=== PATIENT | female | born 1975 | race African-American/Black ===

== ENCOUNTER 2017-05-13 00:03 | Emergency (ER) | payer OTHER ==
[2017-05-13 00:21] VITALS: BP 144/84; PULSE 74; RESP 18; TEMP 98.4
[2017-05-13] MEDS ORDERED: PROPARACAINE 0.5% OPHTH DROPS 15 ML BTL LEFT EYE STA (00:46)
[2017-05-13] MEDS ORDERED: TOBRAMYCIN 0.3% OPHTH DROPS 5 ML BTL LEFT EYE STA (00:53)
--- NOTE | 2017-05-13 00:57 | ED ---
General Adult HPI - General Chief complaint: ENT Stated complaint: poss pink eye Time Seen by Provider: 05/13/17 00:44 Source: patient, RN notes reviewed Mode of arrival: ambulatory Limitations: no limitations - History of Present Illness Initial comments: 41-year-old female presents emergency Department chief complaint of left eye irritation. Patient states her slight tearing and redness noted. Patient states this started after she rubbed her eye earlier this evening. Patient's states that there is no blurred vision. Patient states that it just feels like there is something in her eye or she may have a piece of sand. Patient states she does not wear any contacts. - Related Data Home Medications Medication Instructions Recorded Confirmed Zolpidem [Ambien] 10 mg PO HS 04/07/14 05/13/17 Losartan [Cozaar] 50 mg PO DAILY 02/04/16 05/13/17 Phentermine HCl [Adipex-P] 37.5 mg PO QAM 09/30/16 05/13/17 Sertraline [Zoloft] 25 mg PO DAILY 09/30/16 05/13/17 Allergies Allergy/AdvReac Type Severity Reaction Status Date / Time No Known Allergies Allergy Verified 05/13/17 00:18 Review of Systems ROS Statement: Those systems with pertinent positive or pertinent negative responses have been documented in the HPI. ROS Other: All systems not noted in ROS Statement are negative. Past Medical History Past Medical History: Diabetes Mellitus, Hypertension History of Any Multi-Drug Resistant Organisms: None Reported Past Surgical History: Adenoidectomy, Tonsillectomy Additional Past Surgical History / Comment(s): surgical removal of uterine tumors - March 2017 D&C Past Psychological History: No Psychological Hx Reported Smoking Status: Never smoker Past Alcohol Use History: Occasional Past Drug Use History: None Reported General Exam Limitations: no limitations General appearance: alert, in no apparent distress Eye exam: Present: PERRL, EOMI, conjunctival injection (Left), other (Patient had relief of her symptoms with 2 drops of proparacaine. Patient eye was evaluated with flourescein and Wood's lamp which reveals a small abrasion in the 6 o'clock position). Absent: normal appearance, scleral icterus, periorbital swelling Respiratory exam: Present: normal lung sounds bilaterally. Absent: respiratory distress, wheezes, rales, rhonchi, stridor Cardiovascular Exam: Present: regular rate, normal rhythm, normal heart sounds. Absent: systolic murmur, diastolic murmur, rubs, gallop, clicks Neurological exam: Present: alert, oriented X3, CN II-XII intact Skin exam: Present: warm, dry, intact, normal color. Absent: rash Course Vital Signs 05/13/17 00:18 Temperature 98.4 F Pulse Rate 74 Respiratory 18 Rate Blood Pressure 144/84 O2 Sat by Pulse 100 Oximetry Medical Decision Making - Medical Decision Making 41-year-old female presented emergency department for left eye irritation. Patient has a corneal patient she is up-to-date on her tetanus. Patient discharged with Tobrex eyedrops 1 drop every 4 hours for 5 days patient follow- up with ophthalmology if no improvement return parameters were discussed. Disposition Clinical Impression: Corneal abrasion Disposition: HOME SELF-CARE Condition: Stable Instructions: Corneal Abrasion (ED) Additional Instructions: Please return to the Emergency Department if symptoms worsen or any other concerns. Referrals: Ashish Smith MD [Primary Care Provider] - 1-2 days Time of Disposition: 00:57
== END 2017-05-13 01:30 | disposition home or self-care (01) ==
LOC: EC 00:03
DX: S05.02XA Injury of conjunctiva and corneal abrasion without foreign body, left eye, initial encounter (principal); I10 Essential (primary) hypertension; Z90.89 Acquired absence of other organs; Z79.899 Other long term (current) drug therapy; X58.XXXA Exposure to other specified factors, initial encounter
CPT/HCPCS: 99283

== ENCOUNTER 2019-06-16 08:50 | Emergency (ER) | payer OTHER ==
[2019-06-16 08:56] VITALS: BP 139/72; PULSE 91; RESP 16; TEMP 97.8
[2019-06-16 09:30] LABS: Appearance,Urine Cloudy (Clear); Bacteria,Urine Rare /hpf; Bilirubin,Urine Negative (Negative); Blood,Urine Large (Negative); Color,Urine Yellow; Glucose,Urine (UA) 4+ (Negative); Ketones,Urine Negative (Negative); Leukocyte Esterase,Urine Small (Negative); Mucus,Urine Rare /hpf; Nitrite,Urine Negative (Negative); PH, Urine 5.5 (5.0-8.0); Protein,Urine 1+ (Negative); RBC,Urine 8 /hpf (0-5); Specific Gravity,Urine 1.032 (1.001-1.035); Squamous Epithelial Cell,Urine 8 /hpf (0-4); Urobilinogen,Urine <2.0 mg/dL (<2.0); WBC,Urine 9 /hpf (0-5)
--- NOTE | 2019-06-16 09:37 | ED ---
Female Urogenital HPI - General Chief complaint: Urogenital Stated complaint: female gu Time Seen by Provider: 06/16/19 09:03 Source: patient, RN notes reviewed Mode of arrival: ambulatory Limitations: no limitations - History of Present Illness Initial comments: 43-year-old female presents emergency Department chief complaint of vaginal discomfort and discharge. Patient states that she was on antibiotic few weeks ago for an upper respiratory infection. Patient states causes a yeast infection she did take a Diflucan which seemed to help but states now returned and she tried another Diflucan with no relief of symptoms. She does have a history of bacterial vaginosis. Patient states that she is not concern for STD. Patient denies any sores or lesions that she did notice. She states she has some lower abdominal discomfort but she relates this to starting her menstrual cycle. - Related Data Home Medications Medication Instructions Recorded Confirmed Zolpidem [Ambien] 10 mg PO HS 04/07/14 06/16/19 Losartan [Cozaar] 50 mg PO DAILY 02/04/16 06/16/19 LORazepam [Ativan] 1 mg PO HS 12/01/17 06/16/19 sitaGLIPtin [Januvia] 100 mg PO DAILY 06/16/19 06/16/19 Previous Rx's Medication Instructions Recorded metroNIDAZOLE [Flagyl] 500 mg PO TID #30 tab 06/16/19 Allergies Allergy/AdvReac Type Severity Reaction Status Date / Time No Known Allergies Allergy Verified 06/16/19 09:14 Review of Systems ROS Statement: Those systems with pertinent positive or pertinent negative responses have been documented in the HPI. ROS Other: All systems not noted in ROS Statement are negative. Past Medical History Past Medical History: Blood Disorder, Diabetes Mellitus, Hypertension Additional Past Medical History / Comment(s): ANEMIA. History of Any Multi-Drug Resistant Organisms: None Reported Past Surgical History: Adenoidectomy, Tonsillectomy Additional Past Surgical History / Comment(s): surgical removal of uterine tumors - March 2017 D&C Past Anesthesia/Blood Transfusion Reactions: No Reported Reaction Past Psychological History: Anxiety, Depression Smoking Status: Never smoker Past Alcohol Use History: None Reported Past Drug Use History: None Reported General Exam Limitations: no limitations General appearance: alert, in no apparent distress Head exam: Present: atraumatic, normocephalic, normal inspection Respiratory exam: Present: normal lung sounds bilaterally. Absent: respiratory distress, wheezes, rales, rhonchi, stridor Cardiovascular Exam: Present: regular rate, normal rhythm, normal heart sounds. Absent: systolic murmur, diastolic murmur, rubs, gallop, clicks GI/Abdominal exam: Present: soft, normal bowel sounds. Absent: distended, tenderness, guarding, rebound, rigid External exam: Present: normal external exam, other (Exam performed with Renetta GONZALEZ) Speculum exam: Present: vaginal discharge. Absent: erythema, cervical discharge, vaginal bleeding Back exam: Absent: CVA tenderness (R), CVA tenderness (L) Course Vital Signs 06/16/19 08:53 Temperature 97.8 F Pulse Rate 91 Respiratory 16 Rate Blood Pressure 139/72 O2 Sat by Pulse 100 Oximetry Medical Decision Making - Medical Decision Making 43-year-old female presented for vaginal discharge. Patient symptoms are consistent with Bactrim vaginal cyst. Patient did have genital cultured, GC and chlamydia swabs. Patient will be treated with Flagyl at this time. Patient will follow-up with [facility] return for any worsening symptoms. - Lab Data Lab Results 06/16/19 06/16/19 Range/Units 09:13 09:13 Urine Color Yellow Urine Appearance Cloudy H (Clear) Urine pH 5.5 (5.0-8.0) Ur Specific [place] 1.032 (1.001-1.035) Urine Protein 1+ H (Negative) Urine Glucose (UA) 4+ H (Negative) Urine Ketones Negative (Negative) Urine Blood Large H (Negative) Urine Nitrite Negative (Negative) Urine Bilirubin Negative (Negative) Urine Urobilinogen <2.0 (<2.0) mg/dL Ur Leukocyte Esterase Small H (Negative) Urine RBC 8 H (0-5) /hpf Urine WBC 9 H (0-5) /hpf Ur Squamous Epith Cells 8 H (0-4) /hpf Urine Bacteria Rare H (None) /hpf Urine Mucus Rare H (None) /hpf Urine HCG, Qual Not Detected (Not Detectd) Disposition Clinical Impression: Bacterial vaginosis Disposition: HOME SELF-CARE Condition: Stable Instructions (If sedation given, give patient instructions): Bacterial Vaginosis (ED) Additional Instructions: Please return to the Emergency Department if symptoms worsen or any other concerns. Prescriptions: metroNIDAZOLE [Flagyl] 500 mg PO TID #30 tab Is patient prescribed a controlled substance at d/c from ED?: No Referrals: Ashish Smith MD [Primary Care Provider] - 1-2 days Time of Disposition: 09:36
[2019-06-17 13:54] LABS: C. trachomatis,PCR Negative (Neg,Equiv); Chlamydia trachomatis Source Vagina
[2019-06-17 14:22] LABS: N. gonorrhoeae,PCR Negative (Neg,Equiv); Neisseria Source Vagina
== END 2019-06-16 09:46 | disposition home or self-care (01) ==
LOC: EC 08:50
DX: N76.0 Acute vaginitis (principal); B96.89 Other specified bacterial agents as the cause of diseases classified elsewhere; E11.9 Type 2 diabetes mellitus without complications; I10 Essential (primary) hypertension; F41.9 Anxiety disorder, unspecified; Z79.84 Long term (current) use of oral hypoglycemic drugs; Z79.899 Other long term (current) drug therapy; Z98.890 Other specified postprocedural states
CPT/HCPCS: 81001; 81025; 87070; 87205; 87491; 87591; 87808; 99283

== ENCOUNTER 2019-07-29 08:28 | Emergency (ER) | payer OTHER ==
[2019-07-29 08:32] VITALS: BP 147/97; PULSE 81; RESP 20; TEMP 97.9
--- NOTE | 2019-07-29 09:13 | ED ---
Female Urogenital HPI - General Chief complaint: Urogenital Stated complaint: Urogenital Time Seen by Provider: 07/29/19 08:32 Source: patient Mode of arrival: ambulatory Limitations: no limitations - History of Present Illness Initial comments: 43-year-old female presents today for chief complaint of vaginal discharge 1 week. Patient states that she finished menstruation on 07/19/2019 7 she has had some clearish yellow discharge without odor she states she has some vaginal irritation. She states doesn't seem like yeast and does not smoke rash. P atient states she has not been sexually active since January and states that she has had subsequent appointments with her EMS INSTRUCTOR for STI testing. Patient denies any pelvic or back pain denies dysuria or urgency frequency hematuria. Patient denies a fever fluid symptoms. Patient denies a vaginal ulcers or sores. Remaining review of system negative. Upon arrival patient appears well signs acute distress. Last Menstrual Period: 07/19/19 - Related Data Home Medications Medication Instructions Recorded Confirmed Zolpidem [Ambien] 10 mg PO HS 04/07/14 07/20/19 Losartan [Cozaar] 50 mg PO DAILY 02/04/16 07/20/19 LORazepam [Ativan] 1 mg PO HS 12/01/17 07/20/19 sitaGLIPtin [Januvia] 100 mg PO DAILY 06/16/19 07/20/19 Previous Rx's Medication Instructions Recorded Fluconazole [Diflucan] 150 mg PO ONCE 2 Days #2 tab 07/29/19 metroNIDAZOLE 0.75% VAGINAL 1 applic VAGINAL HS 5 Days #5 tube 07/29/19 [Metrogel Vaginal] Allergies Allergy/AdvReac Type Severity Reaction Status Date / Time No Known Allergies Allergy Verified 07/29/19 08:31 Review of Systems ROS Statement: Those systems with pertinent positive or pertinent negative responses have been documented in the HPI. ROS Other: All systems not noted in ROS Statement are negative. Past Medical History Past Medical History: Blood Disorder, Diabetes Mellitus, Hypertension Additional Past Medical History / Comment(s): ANEMIA. History of Any Multi-Drug Resistant Organisms: None Reported Past Surgical History: Adenoidectomy, Tonsillectomy Additional Past Surgical History / Comment(s): surgical removal of uterine tumors - March 2017 D&C Past Anesthesia/Blood Transfusion Reactions: No Reported Reaction Past Psychological History: Anxiety, Depression Smoking Status: Never smoker Past Alcohol Use History: Occasional Past Drug Use History: None Reported General Exam - General Exam Comments Initial Comments: General: The patient is awake and alert, in no distress, and does not appear acutely ill. Eye: Pupils are equal, round and reactive to light, extra-ocular movements are intact. No nystagmus. There is normal conjunctiva bilaterally. No signs of icterus. Cardiovascular: There is a regular rate and rhythm. No murmur, rub or gallop is appreciated. Respiratory: Lungs are clear to auscultation, respirations are non-labored, breath sounds are equal. No wheezes, stridor, rales, or rhonchi. Gastrointestinal: Soft, non-distended, non-tender abdomen without masses or organomegaly noted. There is no rebound or guarding present. Pelvic exam revealed closed cervical os. Scant amount vaginal discharge in vault, mostly clear somewhat yellow tinge no odor. Patient is no cervical motion or adnexal tenderness. Musculoskeletal: Normal ROM, no tenderness. Strength 5/5. Sensation intact. Pulses equal bilaterally 2+. Neurological: A&O x 3. CN II-XII intact, There are no obvious motor or sensory deficits. Coordination appears grossly intact. Speech is normal. Skin: Skin is warm and dry and no rashes or lesions are noted. Psychiatric: Cooperative, appropriate mood & affect, normal judgment. Limitations: no limitations Course Vital Signs 07/29/19 08:29 Temperature 97.9 F Pulse Rate 81 Respiratory 20 Rate Blood Pressure 147/97 O2 Sat by Pulse 100 Oximetry Medical Decision Making - Medical Decision Making 43-year-old female presented today for chief complaint of vaginal discharge. No odor and exam. No cervical motion or adnexal tenderness. No abdominal pain. Patient states she has not been sexually active. Cultures were obtained including gonorrhea chlamydia Trichomonas testing. Patient does not appears to have yeast but complains of vaginal irritation. Ddx includes physiologic discharge. Patient treated with fluconazole and intravaginal metronidazole. At this time do feel patient is stable for discharge with outpatient primary care follow-up as well as EMS INSTRUCTOR follow-up. - Lab Data Lab Results 07/29/19 07/29/19 07/29/19 Range/Units 08:36 08:36 09:05 Urine Color Yellow Urine Appearance Clear (Clear) Urine pH 5.5 (5.0-8.0) Ur Specific [place] 1.041 H (1.001-1.035) Urine Protein Trace H (Negative) Urine Glucose (UA) 4+ H (Negative) Urine Ketones Trace H (Negative) Urine Blood Small H (Negative) Urine Nitrite Negative (Negative) Urine Bilirubin Negative (Negative) Urine Urobilinogen <2.0 (<2.0) mg/dL Ur Leukocyte Esterase Negative (Negative) Urine RBC 6 H (0-5) /hpf Urine WBC 8 H (0-5) /hpf Ur Squamous Epith Cells 5 H (0-4) /hpf Urine Bacteria Occasional H (None) /hpf Urine HCG, Qual Not Detected (Not Detectd) Trichomonas Ag (Rapid) Negative (Negative) Disposition Clinical Impression: Vaginal discharge, Vaginal irritation Disposition: HOME SELF-CARE Condition: Good Instructions (If sedation given, give patient instructions): Vaginal Discharge (ED) Additional Instructions: Please use medication as discussed. Please follow-up with family doctor in the next 2 days and OBGYN in next week. Please return to emergency room if the symptoms increase or worsen or for any other concerns. Prescriptions: Fluconazole [Diflucan] 150 mg PO ONCE 2 Days #2 tab metroNIDAZOLE 0.75% VAGINAL [Metrogel Vaginal] 1 applic VAGINAL HS 5 Days #5 tube Is patient prescribed a controlled substance at d/c from ED?: No Referrals: Ashish Smith MD [Primary Care Provider] - 1-2 days Time of Disposition: 09:13
[2019-07-29 09:57] LABS: Appearance,Urine Clear (Clear); Bacteria,Urine Occasional /hpf; Bilirubin,Urine Negative (Negative); Blood,Urine Small (Negative); Color,Urine Yellow; Glucose,Urine (UA) 4+ (Negative); Ketones,Urine Trace (Negative); Leukocyte Esterase,Urine Negative (Negative); Nitrite,Urine Negative (Negative); PH, Urine 5.5 (5.0-8.0); Protein,Urine Trace (Negative); RBC,Urine 6 /hpf (0-5); Specific Gravity,Urine 1.041 (1.001-1.035); Squamous Epithelial Cell,Urine 5 /hpf (0-4); Urobilinogen,Urine <2.0 mg/dL (<2.0); WBC,Urine 8 /hpf (0-5)
[2019-07-30 13:43] LABS: C. trachomatis,PCR Negative (Neg,Equiv); Chlamydia trachomatis Source Vagina
[2019-07-30 13:46] LABS: N. gonorrhoeae,PCR Negative (Neg,Equiv); Neisseria Source Vagina
== END 2019-07-29 10:04 | disposition home or self-care (01) ==
LOC: EC 08:28
DX: N89.8 Other specified noninflammatory disorders of vagina (principal); I10 Essential (primary) hypertension; E11.9 Type 2 diabetes mellitus without complications; F41.9 Anxiety disorder, unspecified; F32.9 Major depressive disorder, single episode, unspecified; Z79.84 Long term (current) use of oral hypoglycemic drugs; Z79.899 Other long term (current) drug therapy; Z98.890 Other specified postprocedural states
CPT/HCPCS: 81001; 81025; 87070; 87491; 87591; 87808; 99283

== ENCOUNTER 2020-12-12 16:55 | Emergency (ER) | payer OTHER ==
[2020-12-12 16:58] VITALS: RESP 18; TEMP 98.9
--- NOTE | 2020-12-12 17:59 | XR ---
EXAMINATION TYPE: XR humerus RT DATE OF EXAM: 12/12/2020 COMPARISON: NONE HISTORY: Fall. Pain. TECHNIQUE: 2 views FINDINGS: Elbow joint and shoulder joint appear intact. I see no fracture nor dislocation. IMPRESSION: Negative right humerus exam.
--- NOTE | 2020-12-12 17:59 | XR ---
EXAMINATION TYPE: XR shoulder complete RT DATE OF EXAM: 12/12/2020 COMPARISON: NONE HISTORY: Fall on the right shoulder. Pain. TECHNIQUE: 3 views FINDINGS: I see no fracture nor dislocation. Joint spaces appear normal. There are no pathologic calc ifications. IMPRESSION: Negative right shoulder exam.
--- NOTE | 2020-12-12 18:22 | ED ---
Upper Extremity HPI - General Chief Complaint: Extremity Injury, Upper Stated Complaint: Fall, R Arm Injury Time Seen by Provider: 12/12/20 17:00 Source: patient Mode of arrival: ambulatory Limitations: no limitations - History of Present Illness Initial Comments: Patient is a 45-year-old female presenting to the emergency Department with complaints of pain in her right upper arm. Patient states that for the last 2 weeks she has been having some intermittent discomfort of her right upper arm. She denies any falls or trauma to cause this pain and she cannot think of anything that would've aggravated it. Patient states then today she slipped on some ice and fell onto her right arm. She states the pain increased so she came into the ER for evaluation. She denies any previous surgeries or injuries to her right shoulder, right upper arm or right elbow. She denies any other injuries from the fall today. She denies any recent fever or chills. She has no further complaints at this time. - Related Data Home Medications Medication Instructions Recorded Confirmed Zolpidem [Ambien] 10 mg PO HS 04/07/14 07/20/19 Losartan [Cozaar] 50 mg PO DAILY 02/04/16 07/20/19 LORazepam [Ativan] 1 mg PO HS 12/01/17 07/20/19 sitaGLIPtin [Januvia] 100 mg PO DAILY 06/16/19 07/20/19 Previous Rx's Medication Instructions Recorded Fluconazole [Diflucan] 150 mg PO ONCE 2 Days #2 tab 07/29/19 metroNIDAZOLE 0.75% VAGINAL 1 applic VAGINAL HS 5 Days #5 tube 07/29/19 [Metrogel Vaginal] Naproxen Sodium [Aleve] 220 mg PO BID PRN #30 tablet 12/12/20 Allergies Allergy/AdvReac Type Severity Reaction Status Date / Time No Known Allergies Allergy Verified 12/12/20 16:58 Review of Systems ROS Statement: Those systems with pertinent positive or pertinent negative responses have been documented in the HPI. ROS Other: All systems not noted in ROS Statement are negative. Past Medical History Past Medical History: Blood Disorder, Diabetes Mellitus, Hypertension Additional Past Medical History / Comment(s): ANEMIA. History of Any Multi-Drug Resistant Organisms: None Reported Past Surgical History: Adenoidectomy, Hysterectomy, Tonsillectomy Additional Past Surgical History / Comment(s): surgical removal of uterine tumors - March 2017 D&C Past Anesthesia/Blood Transfusion Reactions: No Reported Reaction Past Psychological History: Anxiety, Depression Smoking Status: Never smoker Past Alcohol Use History: Occasional Past Drug Use History: None Reported General Exam - General Exam Comments Initial Comments: GENERAL: Patient is well-developed and well-nourished. Patient is nontoxic and in no acute distress. HEAD: Atraumatic, normocephalic. EYES: Pupils equal round and reactive to light, extraocular movements intact, sclera anicteric, conjunctiva are normal. Eyelids were unremarkable. ENT: TMs normal, nares patent, oropharynx clear without exudates. Moist mucous membranes. NECK: Normal range of motion, supple without lymphadenopathy or JVD. LUNGS: Unlabored respirations. Breath sounds clear to auscultation bilaterally and equal. No wheezes rales or rhonchi. HEART: Regular rate and rhythm without murmurs, rubs or gallops. ABDOMEN: Soft, nontender, normoactive bowel sounds. No guarding, no rebound. No masses appreciated. : Deferred MUSCULOSKELETAL: Patient has pain with palpation of the right upper arm, right anterior shoulder. She has pain with active shoulder flexion and internal and external rotation. She has pain with resisted range of motion. No pain of the right elbow or right lower arm. She is neurovascular intact. There is no swelling, no signs of deformity. No clubbing or cyanosis. NEUROLOGICAL: Patient is alert and oriented x 3. Normal speech, normal gait. PSYCH: Normal mood, normal affect. SKIN: Warm, Dry, normal turgor, no rashes or lesions noted. Limitations: no limitations Course Vital Signs 12/12/20 16:56 Temperature 98.9 F Pulse Rate 100 Respiratory 18 Rate Blood Pressure 161/87 O2 Sat by Pulse 98 Oximetry Medical Decision Making - Medical Decision Making Patient 45-year-old female here for right upper arm pain for the last 2 weeks but then increased today when she slipped on ice and fell onto her right arm. No other injuries from this fall. X-rays of the right shoulder and right humerus revealed no acute fractures dislocations. Her exam is consistent with right shoulder tendinitis. We discussed using ice, heat to the area as well as ibuprofen or Aleve for any discomfort. She is asking for a work note for tonight. I will give her orthopedic follow-up. She is stable for discharge and she is in agreement with this plan of care. Disposition Clinical Impression: Right shoulder tendinitis, Right arm pain Disposition: HOME SELF-CARE Condition: Stable Instructions (If sedation given, give patient instructions): Rotator Cuff Tendinitis (ED) Additional Instructions: Please return to the Emergency Department if symptoms worsen or any other concerns. Recommended an Aleve or Motrin for discomfort. May try ice or heat to the shoulder, gentle stretching. If symptoms persist, please follow up with orthopedic doctor as discussed. Prescriptions: Naproxen Sodium [Aleve] 220 mg PO BID PRN #30 tablet PRN Reason: Pain Is patient prescribed a controlled substance at d/c from ED?: No Referrals: Ashish Smith MD [Primary Care Provider] - 1-2 days Eamon Patel MD [STAFF PHYSICIAN] - 1-2 days
[2020-12-12 18:36] VITALS: BP 143/92; PULSE 73
== END 2020-12-12 18:37 | disposition home or self-care (01) ==
LOC: EC 16:55
DX: M79.621 Pain in right upper arm (principal); M77.8 Other enthesopathies, not elsewhere classified; E11.9 Type 2 diabetes mellitus without complications; I10 Essential (primary) hypertension; Z79.84 Long term (current) use of oral hypoglycemic drugs; Z79.899 Other long term (current) drug therapy
CPT/HCPCS: 99283

== ENCOUNTER 2021-05-10 21:13 | Observation (INO) | payer OTHER ==
[2021-05-10] MEDS ORDERED: KETOROLAC 15 MG/ML 1 ML VIAL IVP STA (21:50)
[2021-05-10] MEDS ORDERED: SODIUM CHLORIDE 0.9% 1,000 ML IV STA ×2 (21:50)
[2021-05-10] MEDS ORDERED: MORPHINE SULFATE 4 MG/ML SYRINGE IV STA (21:50)
[2021-05-10] MEDS ORDERED: SODIUM CHLORIDE 0.9% 500 ML 500 ML IV STA (21:50)
--- NOTE | 2021-05-10 21:50 | ED ---
Abdominal Pain HPI - General Chief Complaint: Nausea/Vomiting/Diarrhea Stated Complaint: left side pain, nausea & vomiting Time Seen by Provider: 05/10/21 21:41 Source: patient, RN notes reviewed, old records reviewed Mode of arrival: ambulatory Limitations: no limitations - History of Present Illness Initial Comments: This is a 45-year-old female DF for evaluation patient Dese for evaluation of severe pain left-sided flank pain. Patient has no tenderness noted on exam. No fevers. Decreased urination noted. Patient was diagnosed as having a urinary tract infection unsure of those urine results. Patient has persistent pain here in the ER, denying history of kidney stones Complaint: abdominal pain, flank pain (left sided) -: days(s) Location: LLQ, L flank Radiation: L flank Migration to: no migration Severity: severe Severity scale (1-10): 8 Quality: stabbing Consistency: constant Improves With: nothing Worsens With: nothing Context: recent antibiotic use Associated Symptoms: nausea, vomiting Treatments Prior to Arrival: other (none) - Related Data Home Medications Medication Instructions Recorded Confirmed Zolpidem [Ambien] 10 mg PO HS 04/07/14 05/10/21 Losartan [Cozaar] 50 mg PO DAILY 02/04/16 05/10/21 LORazepam [Ativan] 1 mg PO HS PRN 12/01/17 05/10/21 Ibuprofen [Motrin] 800 mg PO Q8H PRN 05/10/21 05/10/21 Nitrofurantoin Monohyd/M-Cryst 100 mg PO Q12HR 05/10/21 05/10/21 [Macrobid] metFORMIN HCL 500 mg PO BID 05/10/21 05/10/21 Previous Rx's Medication Instructions Recorded HYDROcodone/APAP 5-325MG [[place] 1 tab PO Q4HR PRN #14 tab 05/12/21 5-325] Tamsulosin [Flomax] 0.4 mg PO PC-SUPPER #30 cap.er.24h 05/12/21 Allergies Allergy/AdvReac Type Severity Reaction Status Date / Time No Known Allergies Allergy Verified 05/10/21 23:28 Review of Systems ROS Statement: Those systems with pertinent positive or pertinent negative responses have been documented in the HPI. ROS Other: All systems not noted in ROS Statement are negative. Past Medical History Past Medical History: Blood Disorder, Diabetes Mellitus, Hypertension Additional Past Medical History / Comment(s): ANEMIA. History of Any Multi-Drug Resistant Organisms: None Reported Past Surgical History: Adenoidectomy, Hysterectomy, Tonsillectomy Additional Past Surgical History / Comment(s): surgical removal of uterine tumors - March 2017 D&C Past Anesthesia/Blood Transfusion Reactions: No Reported Reaction Past Psychological History: Anxiety, Depression Smoking Status: Never smoker Past Alcohol Use History: Occasional Past Drug Use History: None Reported General Exam Limitations: no limitations General appearance: alert, in no apparent distress Head exam: Present: atraumatic, normocephalic, normal inspection Eye exam: Present: normal appearance, PERRL, EOMI. Absent: scleral icterus, conjunctival injection, periorbital swelling ENT exam: Present: normal exam, mucous membranes moist Neck exam: Present: normal inspection. Absent: tenderness, meningismus, lymphadenopathy Respiratory exam: Present: normal lung sounds bilaterally. Absent: respiratory distress, wheezes, rales, rhonchi, stridor Cardiovascular Exam: Present: regular rate, normal rhythm, normal heart sounds. Absent: systolic murmur, diastolic murmur, rubs, gallop, clicks GI/Abdominal exam: Present: soft, normal bowel sounds. Absent: distended, tenderness, guarding, rebound, rigid Extremities exam: Present: normal inspection, full ROM, normal capillary refill. Absent: tenderness, pedal edema, joint swelling, calf tenderness Back exam: Present: normal inspection Neurological exam: Present: alert, oriented X3, CN II-XII intact Psychiatric exam: Present: normal affect, normal mood Skin exam: Present: warm, dry, intact, normal color. Absent: rash Course Vital Signs 05/10/21 05/10/21 05/10/21 21:35 22:50 23:58 Temperature 98.0 F Pulse Rate 91 88 92 Respiratory 20 16 16 Rate Blood Pressure 157/87 159/77 156/87 O2 Sat by Pulse 99 98 98 Oximetry - Reevaluation(s) Reevaluation #1: Medical record is reviewed Patient no significant acute distress Patient symptoms improved here in the ER Patient informed of results and questions answered Medical Decision Making - Medical Decision Making 45 female DF for evaluation of left flank pain severe left flank pain no history of kidney stones. Evidence of pyelonephritis on imaging likely kidney stone related to inflammation related does not appear to be infectious but will treat with antibiotics and symptom management - Lab Data Result diagrams: 05/10/21 22:08 05/10/21 22:08 Lab Results 05/10/21 05/10/21 05/10/21 Range/Units 22:08 22:08 22:08 WBC 10.8 H (3.8-10.6) k/uL RBC 4.80 (3.80-5.40) m/uL Hgb 13.9 (11.4-16.0) gm/dL Hct 41.5 (34.0-46.0) % MCV 86.4 (80.0-100.0) fL MCH 29.0 (25.0-35.0) pg MCHC 33.6 (31.0-37.0) g/dL RDW 12.0 (11.5-15.5) % Plt Count 282 (150-450) k/uL MPV 6.9 Neutrophils % 85 % Lymphocytes % 11 % Monocytes % 2 % Eosinophils % 2 % Basophils % 0 % Neutrophils # 9.2 H (1.3-7.7) k/uL Lymphocytes # 1.2 (1.0-4.8) k/uL Monocytes # 0.2 (0-1.0) k/uL Eosinophils # 0.2 (0-0.7) k/uL Basophils # 0.0 (0-0.2) k/uL Sodium (137-145) mmol/L Potassium (3.5-5.1) mmol/L Chloride (98-107) mmol/L Carbon Dioxide (22-30) mmol/L Anion Gap mmol/L BUN (7-17) mg/dL Creatinine (0.52-1.04) mg/dL Est GFR (CKD-EPI)AfAm (>60 ml/min/1.73 sqM) Est GFR (CKD-EPI)NonAf (>60 ml/min/1.73 sqM) Glucose (74-99) mg/dL Estimated Ave Glu mg/dL Hemoglobin A1c (4.0-6.0) % Plasma Lactic Acid [place] (0.7-2.0) mmol/L Calcium (8.4-10.2) mg/dL Total Bilirubin (0.2-1.3) mg/dL AST (14-36) U/L ALT (4-34) U/L Alkaline Phosphatase (38-126) U/L Total Protein (6.3-8.2) g/dL Albumin (3.5-5.0) g/dL Amylase (30-110) U/L Lipase (23-300) U/L Urine Color Dark Yellow Urine Appearance Clear (Clear) Urine pH 6.0 (5.0-8.0) Ur Specific [place] 1.027 (1.001-1.035) Urine Protein Trace H (Negative) Urine Glucose (UA) 4+ H (Negative) Urine Ketones 1+ H (Negative) Urine Blood Small H (Negative) Urine Nitrite Negative (Negative) Urine Bilirubin Negative (Negative) Urine Urobilinogen <2.0 (<2.0) mg/dL Ur Leukocyte Esterase Trace H (Negative) Urine RBC 19 H (0-5) /hpf Urine WBC 3 (0-5) /hpf Ur Squamous Epith Cells 4 (0-4) /hpf Urine Bacteria Rare H (None) /hpf Urine HCG, Qual Not Detected (Not Detectd) Coronavirus (PCR) (Not Detectd) 05/10/21 05/10/21 05/10/21 Range/Units 22:08 22:08 22:08 WBC (3.8-10.6) k/uL RBC (3.80-5.40) m/uL Hgb (11.4-16.0) gm/dL Hct (34.0-46.0) % MCV (80.0-100.0) fL MCH (25.0-35.0) pg MCHC (31.0-37.0) g/dL RDW (11.5-15.5) % Plt Count (150-450) k/uL MPV Neutrophils % % Lymphocytes % % Monocytes % % Eosinophils % % Basophils % % Neutrophils # (1.3-7.7) k/uL Lymphocytes # (1.0-4.8) k/uL Monocytes # (0-1.0) k/uL Eosinophils # (0-0.7) k/uL Basophils # (0-0.2) k/uL Sodium 135 L (137-145) mmol/L Potassium 4.1 (3.5-5.1) mmol/L Chloride 103 (98-107) mmol/L Carbon Dioxide 23 (22-30) mmol/L Anion Gap 9 mmol/L BUN 13 (7-17) mg/dL Creatinine 0.82 (0.52-1.04) mg/dL Est GFR (CKD-EPI)AfAm >90 (>60 ml/min/1.73 sqM) Est GFR (CKD-EPI)NonAf 87 (>60 ml/min/1.73 sqM) Glucose 293 H (74-99) mg/dL Estimated Ave Glu mg/dL 200 Hemoglobin A1c 8.6 H (4.0-6.0) % Plasma Lactic Acid [place] 1.1 (0.7-2.0) mmol/L Calcium 9.5 (8.4-10.2) mg/dL Total Bilirubin 0.9 (0.2-1.3) mg/dL AST 17 (14-36) U/L ALT 14 (4-34) U/L Alkaline Phosphatase 82 (38-126) U/L Total Protein 7.0 (6.3-8.2) g/dL Albumin 4.0 (3.5-5.0) g/dL Amylase 78 (30-110) U/L Lipase 47 (23-300) U/L Urine Color Urine Appearance (Clear) Urine pH (5.0-8.0) Ur Specific [place] (1.001-1.035) Urine Protein (Negative) Urine Glucose (UA) (Negative) Urine Ketones (Negative) Urine Blood (Negative) Urine Nitrite (Negative) Urine Bilirubin (Negative) Urine Urobilinogen (<2.0) mg/dL Ur Leukocyte Esterase (Negative) Urine RBC (0-5) /hpf Urine WBC (0-5) /hpf Ur Squamous Epith Cells (0-4) /hpf Urine Bacteria (None) /hpf Urine HCG, Qual (Not Detectd) Coronavirus (PCR) (Not Detectd) 05/10/21 Range/Units 23:32 WBC (3.8-10.6) k/uL RBC (3.80-5.40) m/uL Hgb (11.4-16.0) gm/dL Hct (34.0-46.0) % MCV (80.0-100.0) fL MCH (25.0-35.0) pg MCHC (31.0-37.0) g/dL RDW (11.5-15.5) % Plt Count (150-450) k/uL MPV Neutrophils % % Lymphocytes % % Monocytes % % Eosinophils % % Basophils % % Neutrophils # (1.3-7.7) k/uL Lymphocytes # (1.0-4.8) k/uL Monocytes # (0-1.0) k/uL Eosinophils # (0-0.7) k/uL Basophils # (0-0.2) k/uL Sodium (137-145) mmol/L Potassium (3.5-5.1) mmol/L Chloride (98-107) mmol/L Carbon Dioxide (22-30) mmol/L Anion Gap mmol/L BUN (7-17) mg/dL Creatinine (0.52-1.04) mg/dL Est GFR (CKD-EPI)AfAm (>60 ml/min/1.73 sqM) Est GFR (CKD-EPI)NonAf (>60 ml/min/1.73 sqM) Glucose (74-99) mg/dL Estimated Ave Glu mg/dL Hemoglobin A1c (4.0-6.0) % Plasma Lactic Acid [place] (0.7-2.0) mmol/L Calcium (8.4-10.2) mg/dL Total Bilirubin (0.2-1.3) mg/dL AST (14-36) U/L ALT (4-34) U/L Alkaline Phosphatase (38-126) U/L Total Protein (6.3-8.2) g/dL Albumin (3.5-5.0) g/dL Amylase (30-110) U/L Lipase (23-300) U/L Urine Color Urine Appearance (Clear) Urine pH (5.0-8.0) Ur Specific [place] (1.001-1.035) Urine Protein (Negative) Urine Glucose (UA) (Negative) Urine Ketones (Negative) Urine Blood (Negative) Urine Nitrite (Negative) Urine Bilirubin (Negative) Urine Urobilinogen (<2.0) mg/dL Ur Leukocyte Esterase (Negative) Urine RBC (0-5) /hpf Urine WBC (0-5) /hpf Ur Squamous Epith Cells (0-4) /hpf Urine Bacteria (None) /hpf Urine HCG, Qual (Not Detectd) Coronavirus (PCR) Not Detected (Not Detectd) - Radiology Data Radiology results: report reviewed (CT abdomen and pelvis does show left pyelonephritis), image reviewed Disposition Clinical Impression: Hydronephrosis, left, Pyelonephritis of left kidney Disposition: ADMITTED IP TO THIS HOSP Condition: Good Is patient prescribed a controlled substance at d/c from ED?: No
[2021-05-10 22:19] LABS: Basophils % (A) 0 %; Eosinophils # (A) 0.2 k/uL (0-0.7); Eosinophils % (A) 2 %; HCT 41.5 % (34.0-46.0); HGB 13.9 gm/dL (11.4-16.0); Lymphocytes # (A) 1.2 k/uL (1.0-4.8); Lymphocytes % (A) 11 %; MCHC 33.6 g/dL (31.0-37.0); MCV 86.4 fL (80.0-100.0); Mean Platelet Volume 6.9; Monocytes # (A) 0.2 k/uL (0-1.0); Monocytes % (A) 2 %; Neutrophils # (A) 9.2 k/uL (1.3-7.7); Neutrophils % (A) 85 %; Platelet Count 282 k/uL (150-450); WBC 10.8 k/uL (3.8-10.6)
[2021-05-10 22:25] LABS: ALT 14 U/L (4-34); AST 17 U/L (14-36); African American GFR (CKD) >90 (>60 ml/min/1.73 sqM); Alkaline Phosphatase 82 U/L (38-126); Amylase 78 U/L (30-110); Anion Gap 9 mmol/L; Blood Urea Nitrogen 13 mg/dL (7-17); Calcium 9.5 mg/dL (8.4-10.2); Carbon Dioxide 23 mmol/L (22-30); Chloride 103 mmol/L (98-107); Glucose 293 mg/dL (74-99); Non-African American GFR(CKD) 87 (>60 ml/min/1.73 sqM); Potassium 4.1 mmol/L (3.5-5.1); Sodium 135 mmol/L (137-145); Total Bilirubin 0.9 mg/dL (0.2-1.3)
[2021-05-10] MEDS ORDERED: ONDANSETRON 4 MG/2 ML VIAL IVP STA (22:44)
[2021-05-10 22:54] LABS: Lipase 47 U/L (23-300)
[2021-05-10 22:55] LABS: Appearance,Urine Clear (Clear); Bacteria,Urine Rare /hpf; Bilirubin,Urine Negative (Negative); Blood,Urine Small (Negative); Color,Urine Dark Yellow; Glucose,Urine (UA) 4+ (Negative); Ketones,Urine 1+ (Negative); Leukocyte Esterase,Urine Trace (Negative); Nitrite,Urine Negative (Negative); Protein,Urine Trace (Negative); RBC,Urine 19 /hpf (0-5); Specific Gravity,Urine 1.027 (1.001-1.035); Squamous Epithelial Cell,Urine 4 /hpf (0-4); Urobilinogen,Urine <2.0 mg/dL (<2.0); WBC,Urine 3 /hpf (0-5)
--- NOTE | 2021-05-10 22:56 | CT ---
EXAMINATION TYPE: CT abdomen pelvis wo con DATE OF EXAM: 05/10/2021 COMPARISON: None HISTORY: Left lower abdominal/flank pain. CT DLP: 1081.4 mGycm Automated exposure control for dose reduction was used. Images obtained from the diaphragm to the floor the pelvis with no contrast. Lung bases are clear of consolidation. There is no pleural effusion. Liver and spleen are intact. Ent za liver not included on the exam. Stomach is intact. There is no pancreatic mass. Gallbladder appea rs normal. The bile ducts are not dilated. There is no adrenal mass. There is left-sided hydronephrosis and fat stranding around the left ureter . Distal left ureter is difficult to localize. Urinary bladder is almost empty. There is cystic mass in the pelvis on the left side. This measures 6.3 cm in diameter. The density is 3 and consistent wit h cyst. Uterus appears small. There is no free fluid in the pelvis. There is a 3 mm calcification in the pelvis on the left side. It is not clear if this is in the ureter. I do not clearly see a stone i n the distal left ureter. The cecum is near the midline pelvis. The appendix is not seen. There is no sign of thickened appendi x. The lumbar vertebra have normal alignment. There is no compression fracture. The posterior elements a re intact. Bony pelvis is intact. There is no hip dysplasia. There is mild acetabular spurring. IMPRESSION: There is left-sided hydronephrosis and mild hydroureter. There is some fat stranding around the urete r. There is cystic pelvic mass on the left side that is probably ovarian cyst. Distal left ureter not well seen. I would consider both obstruction of the distal left ureter as well as pyelonephritis. Tu mor involvement of the distal left ureter also possible. Follow-up recommended.
[2021-05-11] MEDS ORDERED: NALOXONE 0.4 MG/ML 1 ML VIAL IV PRN (00:03)
[2021-05-11] MEDS ORDERED: ONDANSETRON 4 MG/2 ML VIAL IVP PRN (00:03)
[2021-05-11] MEDS: SODIUM CHLORIDE 0.9% 1,000 ML IV SCH ×3 (00:44→17:11)
[2021-05-11 01:19] LABS: Glucose,Whole Blood 261 mg/dL (75-99)
[2021-05-11] MEDS: MORPHINE SULFATE 4 MG/ML SYRINGE IV PRN ×4 (02:32→23:54)
[2021-05-11] MEDS: INSULIN ASPART (NovoLOG) 100 UNIT/ML VIAL SQ SCH ×7 (02:34→20:29)
[2021-05-11 07:21] LABS: Glucose,Whole Blood 152 mg/dL (75-99)
[2021-05-11] MEDS ORDERED: LORazepam 1 MG TAB PO PRN (08:55)
--- NOTE | 2021-05-11 09:07 | US ---
EXAMINATION TYPE: US pelvic complete DATE OF EXAM: 05/11/2021 COMPARISON: NONE CLINICAL HISTORY: hydronephrosis. pelvic cystic area visualized on recent CT. patient states hysterec carter and oophorectomy (patient unsure right ovary vs left ovary) January 2020 TECHNIQUE: Transabdominal (TA). patient doesn't want TV at this time Date of LMP: unknown EXAM MEASUREMENTS: Uterus: Surgically absent Endometrial Stripe: Surgically absent Right Ovary: Surgically absent Left Ovary: 6.4 x 5.0 x 5.2 cm 1. Uterus: possible cervix remaining 2. Endometrium: Surgically absent 3. Right Ovary: Surgically absent 4. Left Ovary/left adnexa: cystic area left adnexa = 6.4 x 5.0 x 5.2cm, little to no normal ovarian tissue visualized 5. Right Adnexa: appears wnl 6. Posterior cul-de-sac: wnl IMPRESSION: 6.4 cm cyst within the left adnexa with no definite ovarian tissue visualized. Please correlate clini leonardo. Additional imaging could be performed if clinically warranted. Patient is reportedly status post hysterectomy and right oophorectomy.
--- NOTE | 2021-05-11 09:09 | US ---
EXAMINATION TYPE: US renals and bladder DATE OF EXAM: 05/11/2021 COMPARISON: NONE CLINICAL HISTORY: hydronephrosis. EXAM MEASUREMENTS: Right Kidney: 12.0 x 5.2 x 5.4 cm Left Kidney: 12.1 x 6.4 x 5.2 cm Right Kidney: no evidence of hydronephrosis Left Kidney: minimal/mild hydronephrosis Bladder: appears wnl Bilateral Jets seen: no left jet could be seen. Right jet was noted. No nephrolithiasis is seen. No masses are identified. The urinary bladder is anechoic. IMPRESSION: Mild left hydronephrosis. No left ureteral jet was visualized.
[2021-05-11] MEDS: LOSARTAN 50 MG TAB PO SCH (09:55)
[2021-05-11 12:20] LABS: Glucose,Whole Blood 196 mg/dL (75-99)
--- NOTE | 2021-05-11 13:11 | P.GSCN ---
History of Present Illness Consult date: 05/11/21 History of present illness: Pleasant 45-year-old female admitted to the hospital with severe left-sided pain. The pain began a couple days ago. She ended up in her primary care doctor's office who said that she may have a urine infection. The urine was not Lasix for infection but I thought that it was going to occur. He had severe back pain nausea vomiting as well as urinary frequency. There is been no fever. He ended up in the emergency room where she had a computed tomography scan that identified left hydronephrosis with some perinephric stranding. Urinalysis showed red blood cells without pyuria. Her white count was 10.9. There is a calcification in the region of the left distal ureter but the radiologist as well as myself could not follow the ureter through the pelvis due to artifact and large uterus. It appears as if there is a tiny stone in the left distal ureter however. The patient's pain is that of colic. Clinical symptoms are consistent. She has never had a stone but her sisters had a stone. Review of Systems All systems: negative Past Medical History Past Medical History: Diabetes Mellitus, Hypertension Additional Past Medical History / Comment(s): ANEMIA, bacterial vaginosis, corneal abrasion,R arm pain, R shoulder tendonities, UTI, vertigo History of Any Multi-Drug Resistant Organisms: None Reported Past Surgical History: Adenoidectomy, Hysterectomy, Tonsillectomy Additional Past Surgical History / Comment(s): surgical removal of uterine tu mors - March 2017 D&C, uterine ablation Past Anesthesia/Blood Transfusion Reactions: No Reported Reaction Smoking Status: Never smoker Medications and Allergies Home Medications Medication Instructions Recorded Confirmed Type Zolpidem [Ambien] 10 mg PO HS 04/07/14 05/10/21 History Losartan [Cozaar] 50 mg PO DAILY 02/04/16 05/10/21 History LORazepam [Ativan] 1 mg PO HS PRN 12/01/17 05/10/21 History Ibuprofen [Motrin] 800 mg PO Q8H PRN 05/10/21 05/10/21 History Nitrofurantoin Monohyd/M-Cryst 100 mg PO Q12HR 05/10/21 05/10/21 History [Macrobid] metFORMIN HCL 500 mg PO BID 05/10/21 05/10/21 History Allergies Allergy/AdvReac Type Severity Reaction Status Date / Time No Known Allergies Allergy Verified 05/10/21 23:28 Surgical - Exam Vital Signs Temp Pulse Resp BP Pulse Ox 98.0 F 91 20 157/87 99 05/10/21 21:35 05/10/21 21:35 05/10/21 21:35 05/10/21 21:35 05/10/21 21:35 - General well developed, well nourished, obese - Eyes PERRL - ENT no hearing loss - Neck no masses - Respiratory normal expansion, normal respiratory effort - Cardiovascular Rhythm: regular - Abdomen Abdomen: soft, tender - Integumentary no rash, no growths - Neurologic normal coordination, normal sensation - Musculoskeletal normal posture - Psychiatric oriented to time, oriented to person, oriented to place, speech is normal, memory intact Results - Labs 05/10/21 22:08 05/10/21 22:08 Abnormal Lab Results - Last 24 Hours (Table) 05/10/21 05/10/21 05/10/21 Range/Units 22:08 22:08 22:08 WBC 10.8 H (3.8-10.6) k/uL Neutrophils # 9.2 H (1.3-7.7) k/uL Sodium 135 L (137-145) mmol/L Glucose 293 H (74-99) mg/dL POC Glucose (mg/dL) (75-99) mg/dL Urine Protein Trace H (Negative) Urine Glucose (UA) 4+ H (Negative) Urine Ketones 1+ H (Negative) Urine Blood Small H (Negative) Ur Leukocyte Esterase Trace H (Negative) Urine RBC 19 H (0-5) /hpf Urine Bacteria Rare H (None) /hpf 05/11/21 05/11/21 05/11/21 Range/Units 01:17 07:20 12:16 WBC (3.8-10.6) k/uL Neutrophils # (1.3-7.7) k/uL Sodium (137-145) mmol/L Glucose (74-99) mg/dL POC Glucose (mg/dL) 261 H 152 H 196 H (75-99) mg/dL Urine Protein (Negative) Urine Glucose (UA) (Negative) Urine Ketones (Negative) Urine Blood (Negative) Ur Leukocyte Esterase (Negative) Urine RBC (0-5) /hpf Urine Bacteria (None) /hpf Diabetes panel 05/10/21 Range/Units 22:08 Sodium 135 L (137-145) mmol/L Potassium 4.1 (3.5-5.1) mmol/L Chloride 103 (98-107) mmol/L Carbon Dioxide 23 (22-30) mmol/L BUN 13 (7-17) mg/dL Creatinine 0.82 (0.52-1.04) mg/dL Glucose 293 H (74-99) mg/dL Calcium 9.5 (8.4-10.2) mg/dL AST 17 (14-36) U/L ALT 14 (4-34) U/L Alkaline Phosphatase 82 (38-126) U/L Total Protein 7.0 (6.3-8.2) g/dL Albumin 4.0 (3.5-5.0) g/dL Calcium panel 05/10/21 Range/Units 22:08 Calcium 9.5 (8.4-10.2) mg/dL Albumin 4.0 (3.5-5.0) g/dL Pituitary panel 05/10/21 Range/Units 22:08 Sodium 135 L (137-145) mmol/L Potassium 4.1 (3.5-5.1) mmol/L Chloride 103 (98-107) mmol/L Carbon Dioxide 23 (22-30) mmol/L BUN 13 (7-17) mg/dL Creatinine 0.82 (0.52-1.04) mg/dL Glucose 293 H (74-99) mg/dL Calcium 9.5 (8.4-10.2) mg/dL Adrenal panel 05/10/21 Range/Units 22:08 Sodium 135 L (137-145) mmol/L Potassium 4.1 (3.5-5.1) mmol/L Chloride 103 (98-107) mmol/L Carbon Dioxide 23 (22-30) mmol/L BUN 13 (7-17) mg/dL Creatinine 0.82 (0.52-1.04) mg/dL Glucose 293 H (74-99) mg/dL Calcium 9.5 (8.4-10.2) mg/dL Total Bilirubin 0.9 (0.2-1.3) mg/dL AST 17 (14-36) U/L ALT 14 (4-34) U/L Alkaline Phosphatase 82 (38-126) U/L Total Protein 7.0 (6.3-8.2) g/dL Albumin 4.0 (3.5-5.0) g/dL - Imaging CT scan - abdomen: report reviewed, image reviewed CT scan - pelvis: report reviewed, image reviewed Assessment and Plan Assessment: Impression: Acute ureteral colic left consistent with ureteral calculus. Computed tomography scan suggestive but not diagnostic of a distal left ureteral stone. Diabetes, obesity Recommendations: I will see this patient. I'll continue with IV fluids. I'll give her some tamsulosin. Hopefully she can pass this spontaneously. I do not think she has an infection based on the minimally elevated white count and urinalysis that was more of a stone. I will follow this patient with you.
[2021-05-11] MEDS: ACETAMINOPHEN TAB 325 MG TAB PO PRN ×2 (17:31→23:10)
[2021-05-11 17:37] LABS: Glucose,Whole Blood 251 mg/dL (75-99)
[2021-05-11] MEDS ORDERED: TAMSULOSIN 0.4 MG CAP.ER.24H PO SCH (18:30)
[2021-05-11 20:21] VITALS: RESP 18
[2021-05-11 20:25] LABS: Glucose,Whole Blood 305 mg/dL (75-99)
[2021-05-11] MEDS ORDERED: ZOLPIDEM 5 MG TAB PO SCH (21:00)
[2021-05-12] MEDS: SODIUM CHLORIDE 0.9% 1,000 ML IV SCH ×2 (04:00→12:10)
[2021-05-12] MEDS: MORPHINE SULFATE 4 MG/ML SYRINGE IV PRN (06:34)
[2021-05-12 06:39] LABS: Glucose,Whole Blood 218 mg/dL (75-99)
[2021-05-12] MEDS: ACETAMINOPHEN TAB 325 MG TAB PO PRN ×2 (06:51→12:06)
[2021-05-12] MEDS: INSULIN ASPART (NovoLOG) 100 UNIT/ML VIAL SQ SCH ×2 (06:51→13:03)
[2021-05-12] MEDS: LOSARTAN 50 MG TAB PO SCH (08:08)
--- NOTE | 2021-05-12 08:39 | P.PN ---
Subjective Progress Note Date: 05/12/21 The patient is in the hospital with left-sided flank pain hydronephrosis and a presumed left ureteral calculus. There is no evidence of infection. The patient has had some intermittent colic during this hospitalization. She feels good this morning. I discussed with the patient the option of the stone manipulation versus spontaneous passage. The patient would like to try to pass this spontaneously. I will give her prescription of [place]. She needs to follow-up in my office in one week. He has been instructed to contact me sooner if the pain returns or if she has fever and chills. I've given her my card. Condition is good. Objective - Vital Signs Vital signs: Vital Signs Temp 99.8 F H 05/12/21 06:10 Pulse 100 05/12/21 06:10 Resp 18 05/12/21 06:10 BP 141/87 05/12/21 06:10 Pulse Ox 98 05/12/21 06:10 Intake & Output 05/11/21 05/12/21 05/12/21 18:59 06:59 18:59 Intake Total 1080 Output Total 1100 Balance -20 Intake: Oral 1080 Output: Urine 1100 Other: Voiding Method Toilet Toilet # Voids 1 - Labs CBC & Chem 7: 05/10/21 22:08 05/10/21 22:08 Labs: Abnormal Lab Results - Last 24 Hours (Table) 05/11/21 05/11/21 05/11/21 Range/Units 12:16 17:33 20:24 POC Glucose (mg/dL) 196 H 251 H 305 H (75-99) mg/dL 05/12/21 Range/Units 06:37 POC Glucose (mg/dL) 218 H (75-99) mg/dL
[2021-05-12 12:58] LABS: Glucose,Whole Blood 205 mg/dL (75-99)
[2021-05-12 13:43] LABS: Hemoglobin A1C 8.6 % (4.0-6.0)
--- NOTE | 2021-05-12 13:43 | P.CONS ---
History of Present Illness - Reason for Consult Consult date: 05/12/21 anemia Requesting physician: Jennie Muro - Chief Complaint nausea, vomiting, abdominal pain - History of Present Illness Ms. Merrill is a very pleasant 45 yo female, Dr. Benton, who is here for flank pain and abdominal pain associated with nausea and vomiting. Workup consistent with pyelonephritis and hydronephrosis due to kidney stone. CT revealed possible cyst in left ovary. Abdominal pelvic ultrasound consists of a 6.4 cm cyst within the left adnexa however patient is status post bilateral oophorectomy. Urology on board. She is on antibiotics. Pain is currently controlled. We will consulted as patient is known to us. Her CBC reveals mild leukocytosis at 10.8, normal hemoglobin and platelets of 13.9 and 282 respectively. She was seeing Dr. Benton in the past for iron deficiency anemia due to menorrhagia, status post [facility] in 01/2020. Last seen by Dr. Benton in May 2020. Hematologic history: Pt follows with Dr. Benton. Db was referred by Dr Smith due to severe anemia & weakness. She recently presnted to [facility]'s ER with weakness, was found to have anemia with HGB of 9.9 and MCV of 77. Iron studies done by Dr Smith revealed iron of 38, TIBC of 501 and saturation of 7.6. She was started on oral iron with very poor tolerance (Constipation/Nausea). She admitted having severe menorrhagia X 15 years, and while menstrual cycle is regular, bleeding lasts 7-9 days and rather very "heavy". She is contemplating Endometrial ablation. Denies melena, hematochezia, gross hematuria or Hematemesis. 09/18/16-Pt here for acute visit, she was noticing increased fatigue, sleeping alot and craving "corn starch"-this has happened before when she is low on iron- she had 3 menses in June, denies any other bleeding. She states she has otherwise been in her normal state of health, no c/o on a 10 point ROS. 12/12/16: Feels Ok, tired, does not think Venofer was effective. 01/28/17: Feels Ok , stronger, still having uterine bleeding. 03/23/17: C/O progressive fatigue and excersize intolerance X 4-5 weeks. 11/07/17: C/O fatigue & lack of stamina. Has regular, but prolonged menses, no signs/symptoms of Gi blood loss 01/21/18: Given IV Venofer nov 2017 > well tolerated, C/O inability to loose weight . 10/13/18: Feels Ok, tired, continue to have menorrhagia > will have Hysterectomy soon. 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 06/23/19-Progressive fatigue, cravings have started, suspects low on iron. Hgb down 1 gram from last visit. No plans for OLGA yet, cannot have vaginal approach surgery due to uterus size, will have epistaxis as well, no other bleeding to report. No other c/o. 12/03/19: Feels Ok will have OLGA January 2020 at [facility]. 06/08/20: Had OLGA+BSOin January 2020 > feels well Past Medical History Past Medical History: Diabetes Mellitus, Hypertension Additional Past Medical History / Comment(s): ANEMIA, bacterial vaginosis, corneal abrasion,R arm pain, R shoulder tendonities, UTI, vertigo History of Any Multi-Drug Resistant Organisms: None Reported Past Surgical History: Adenoidectomy, Hysterectomy, Tonsillectomy Additional Past Surgical History / Comment(s): surgical removal of uterine tumors - March 2017 D&C, uterine ablation Past Anesthesia/Blood Transfusion Reactions: No Reported Reaction Smoking Status: Never smoker Medications and Allergies Home Medications Medication Instructions Recorded Confirmed Type Zolpidem [Ambien] 10 mg PO HS 04/07/14 05/10/21 History Losartan [Cozaar] 50 mg PO DAILY 02/04/16 05/10/21 History LORazepam [Ativan] 1 mg PO HS PRN 12/01/17 05/10/21 History Ibuprofen [Motrin] 800 mg PO Q8H PRN 05/10/21 05/10/21 History Nitrofurantoin Monohyd/M-Cryst 100 mg PO Q12HR 05/10/21 05/10/21 History [Macrobid] metFORMIN HCL 500 mg PO BID 05/10/21 05/10/21 History HYDROcodone/APAP 5-325MG [[place] 1 tab PO Q4HR PRN #14 tab 05/12/21 Rx 5-325] Allergies Allergy/AdvReac Type Severity Reaction Status Date / Time No Known Allergies Allergy Verified 05/10/21 23:28 Physical Exam Vitals: Vital Signs Temp Pulse Resp BP Pulse Ox 05/12/21 06:10 99.8 F H 100 18 141/87 98 05/12/21 00:05 98.6 F 64 18 145/98 98 05/11/21 20:21 98.4 F 101 H 18 113/67 96 05/11/21 13:00 98.4 F 86 16 145/80 96 Intake and Output 05/11/21 05/12/21 05/12/21 22:59 06:59 14:59 Intake Total 1080 Output Total 1100 Balance -20 Intake: Oral 1080 Output: Urine 1100 Other: Voiding Method Toilet # Voids 1 Gen.: No acute distress HEENT: Mucosa moist Neck: Supple Lungs: No respiratory distress Heart: Rate Abdomen: Soft MSK: Appropriate strength in all 4 extremities Neuro: Alert and oriented 3 Skin: No jaundice Psych: Appropriate affect Results CBC & Chem 7: 05/10/21 22:08 05/10/21 22:08 Labs: Abnormal Lab Results - Last 24 Hours (Table) 05/11/21 05/11/21 05/12/21 Range/Units 17:33 20:24 06:37 POC Glucose (mg/dL) 251 H 305 H 218 H (75-99) mg/dL CT scan - abdomen: report reviewed CT scan - pelvis: report reviewed US - abdomen: report reviewed Assessment and Plan Assessment: 1. Pyelonephritis 2. Renal stone with hydronephrosis 3. Left adnexal cyst 4. History of anemia Plan: Ms. Merrill is a very pleasant 45-year-old female, patient of Dr. Benton whom she is seen for iron deficiency anemia in the past, last seen in May 2020, who is here for severe abdominal pain, workup revealed likely new kidney stone causing hydronephrosis as well as pyelonephritis. Overall she is feeling better. Abdominal imaging also revealed a cyst in the left adnexal region. She is status OLGA/BSO. Her CBC is normal except for mild leukocytosis. Neurology on board. Continue management of her possible infection and stone. She should fo llow-up with gynecology regarding the cyst in the adnexal region. Otherwise we'll continue to follow patient with you. Discussed with patient and she is agreeable to the plan. All of her questions were answered. Discussed with nursing staff.
--- NOTE | 2021-05-12 14:15 | P.HPIM ---
History of Present Illness H&P Date: 05/11/21 45-year-old female admitted to the hospital with severe left-sided pain. The pain began a couple days ago. She ended up in her primary care doctor's office who said that she may have a urine infection. The urine was not Lasix for infection but I thought that it was going to occur. He had severe back pain nausea vomiting as well as urinary frequency. There is been no fever. He ended up in the emergency room where she had a computed tomography scan that identified left hydronephrosis with some perinephric stranding. Urinalysis showed red blood cells without pyuria. Her white count was 10.9. There is a calcification in the region of the left distal ureter but the radiologist as well as myself could not follow the ureter through the pelvis due to artifact and large uterus. It appears as if there is a tiny stone in the left distal ureter Computed tomography scan suggestive but not diagnostic of a distal left ureteral stone Review of Systems REVIEW OF SYSTEMS: CONSTITUTIONAL: No fever, no malaise, no fatigue. HEENT: No recent visual problems or hearing problems. Denied any sore throat. CARDIOVASCULAR: No chest pain, orthopnea, PND, no palpitations, no syncope. PULMONARY: No shortness of breath, no cough, no hemoptysis. GASTROINTESTINAL: No diarrhea, no nausea, no vomiting, no abdominal pain. NEUROLOGICAL: No headaches, no weakness, no numbness. HEMATOLOGICAL: Denies any bleeding or petechiae. GENITOURINARY: Denies any burning micturition, frequency, or urgency. MUSCULOSKELETAL/RHEUMATOLOGICAL: Denies any joint pain, swelling, or any muscle pain. ENDOCRINE: Denies any polyuria or polydipsia. The rest of the 14-point review of systems is negative. Past Medical History Past Medical History: Diabetes Mellitus, Hypertension Additional Past Medical History / Comment(s): ANEMIA, bacterial vaginosis, corneal abrasion,R arm pain, R shoulder tendonities, UTI, vertigo History of Any Multi-Drug Resistant Organisms: None Reported Past Surgical History: Adenoidectomy, Hysterectomy, Tonsillectomy Additional Past Surgical History / Comment(s): surgical removal of uterine tumors - March 2017 D&C, uterine ablation Past Anesthesia/Blood Transfusion Reactions: No Reported Reaction Smoking Status: Never smoker Medications and Allergies Home Medications Medication Instructions Recorded Confirmed Type Zolpidem [Ambien] 10 mg PO HS 04/07/14 05/10/21 History Losartan [Cozaar] 50 mg PO DAILY 02/04/16 05/10/21 History LORazepam [Ativan] 1 mg PO HS PRN 12/01/17 05/10/21 History Ibuprofen [Motrin] 800 mg PO Q8H PRN 05/10/21 05/10/21 History Nitrofurantoin Monohyd/M-Cryst 100 mg PO Q12HR 05/10/21 05/10/21 History [Macrobid] metFORMIN HCL 500 mg PO BID 05/10/21 05/10/21 History HYDROcodone/APAP 5-325MG [[place] 1 tab PO Q4HR PRN #14 tab 05/12/21 Rx 5-325] Tamsulosin [Flomax] 0.4 mg PO PC-SUPPER #30 cap.er.24h 05/12/21 Rx Allergies Allergy/AdvReac Type Severity Reaction Status Date / Time No Known Allergies Allergy Verified 05/10/21 23:28 Physical Exam Vitals: Vital Signs Temp Pulse Pulse Resp BP BP Pulse Ox 05/11/21 13:00 98.4 F 86 16 145/80 96 05/11/21 04:40 98.7 F 75 20 148/71 99 05/11/21 01:05 98.5 F 72 20 150/93 98 05/10/21 23:58 92 16 156/87 98 05/10/21 22:50 88 16 159/77 98 05/10/21 21:35 98.0 F 91 20 157/87 99 Intake and Output 05/11/21 05/11/21 05/11/21 06:59 14:59 22:59 Intake Total 480 Balance 480 Intake: Intake, IV Titration 480 Amount Sodium Chloride 0.9% 1, 480 000 ml @ 120 mls/hr IV . Q8H20M [facility] Rx#:[id number] Oral 0 Other: Voiding Method Toilet Toilet # Voids 1 1 Weight 105.687 kg - Constitutional General appearance: Present: average body habitus, cooperative, no acute distress - EENT Eyes: Present: anicteric sclerae, EOMI, PERRLA, normal appearance ENT: Present: hearing grossly normal, normal oropharynx Ears: bilateral: normal - Neck Neck: Present: normal ROM. Absent: lymphadenopathy, rigidity, thyromegaly Carotids: negative: bruit present Thyroid: bilateral: normal size, negative: enlarged, nodule - Respiratory Respiratory: bilateral: CTA, negative: rales, rhonchi, wheezing - Cardiovascular Rhythm: regular Heart sounds: normal: S1, S2 Abnormal Heart Sounds: Absent: systolic murmur, diastolic murmur - Gastrointestinal General gastrointestinal: Present: normal bowel sounds, soft. Absent: distended, organomegaly, tenderness - Genitourinary Genitourinary Comment(s): deferred - Integumentary Integumentary: Present: normal turgor. Absent: jaundiced, rash, ulcer - Neurologic Neurologic: Present: CNII-XII intact. Absent: focal deficits - Musculoskeletal Musculoskeletal: Present: gait normal, strength equal bilaterally - Psychiatric Psychiatric: Present: A&O x's 3, appropriate affect, intact judgment & insight Results CBC & Chem 7: 05/10/21 22:08 05/10/21 22:08 Labs: Abnormal Lab Results - Last 24 Hours (Table) 05/10/21 05/10/21 05/10/21 Range/Units 22:08 22:08 22:08 WBC 10.8 H (3.8-10.6) k/uL Neutrophils # 9.2 H (1.3-7.7) k/uL Sodium 135 L (137-145) mmol/L Glucose 293 H (74-99) mg/dL POC Glucose (mg/dL) (75-99) mg/dL Urine Protein Trace H (Negative) Urine Glucose (UA) 4+ H (Negative) Urine Ketones 1+ H (Negative) Urine Blood Small H (Negative) Ur Leukocyte Esterase Trace H (Negative) Urine RBC 19 H (0-5) /hpf Urine Bacteria Rare H (None) /hpf 05/11/21 05/11/21 05/11/21 Range/Units 01:17 07:20 12:16 WBC (3.8-10.6) k/uL Neutrophils # (1.3-7.7) k/uL Sodium (137-145) mmol/L Glucose (74-99) mg/dL POC Glucose (mg/dL) 261 H 152 H 196 H (75-99) mg/dL Urine Protein (Negative) Urine Glucose (UA) (Negative) Urine Ketones (Negative) Urine Blood (Negative) Ur Leukocyte Esterase (Negative) Urine RBC (0-5) /hpf Urine Bacteria (None) /hpf Thrombosis Risk Factor Assmnt - Choose All That Apply Each Factor Represents 1 point: Age 41-60 years Thrombosis Risk Factor Assessment Total Risk Factor Score: 1 Thrombosis Risk Factor Assessment Level: Low Risk Assessment and Plan Assessment: 1. Acute ureteral colic with ureteral calculus - Patient had CT of abdomen done a deacon EGD which is suggestive but not diagnostic of a distal left ureteral stone - Patient is evaluated by urology and recommending to continue with IV fluids, patient is started on Flomax 0.4 mg daily for possible spontaneous passage of the stone 2. UTI/pyelonephritis; patient is started on IV Rocephin we will continue for n ow await further recommendations from urology and final urine culture results 3. Hyperglycemia/uncontrolled diabetes; monitor Accu-Cheks before meals and at bedtime with insulin sliding scale 4. Morbid obesity; counseling done on need for weight reduction DVT prophylaxis; SCDs CODE STATUS; full code
[2021-05-12 15:29] VITALS: BP 138/72; PULSE 82; TEMP 98
--- NOTE | 2021-05-30 07:53 | P.DS ---
Providers Date of admission: 05/11/21 00:03 Expected date of discharge: 05/12/21 Attending physician: Jennie Muro Consults: 05/11/21 00:03 Consult Physician Routine Consulting Provider: Daja Naidu Consult Reason/Comments: known Do you want consulting provider notified?: Yes 05/11/21 08:54 Consult Physician Urgent Consulting Provider: Juan Francisco Foote Consult Reason/Comments: left hydronephrosis/ pyel/ possible ureter obstruction Do you want consulting provider notified?: Yes Primary care physician: Luis Santos [facility] Course: 45-year-old female admitted to the hospital with severe left-sided pain. The pain began a couple days ago. She ended up in her primary care doctor's office who said that she may have a urine infection. The urine was not Lasix for inf ection but I thought that it was going to occur. He had severe back pain nausea vomiting as well as urinary frequency. There is been no fever. He ended up in the emergency room where she had a computed tomography scan that identified left hydronephrosis with some perinephric stranding. Urinalysis showed red blood cells without pyuria. Her white count was 10.9. There is a calcification in the region of the left distal ureter but the radiologist as well as myself could not follow the ureter through the pelvis due to artifact and large uterus. It appears as if there is a tiny stone in the left distal ureter Computed tomography scan suggestive but not diagnostic of a distal left ureteral stone 1. Acute ureteral colic with ureteral calculus - Patient had CT of abdomen done a deacon EGD which is suggestive but not diagnostic of a distal left ureteral stone - Patient is evaluated by urology and recommending to continue with IV fluids, patient is started on Flomax 0.4 mg daily for possible spontaneous passage of the stone 2. UTI/pyelonephritis; patient is started on IV Rocephin we will continue for now await further recommendations from urology and final urine culture results 3. Hyperglycemia/uncontrolled diabetes; monitor Accu-Cheks before meals and at bedtime with insulin sliding scale 4. Morbid obesity; counseling done on need for weight reduction Urology evaluated patient with following recommendations; --left-sided flank pain hydronephrosis and a presumed left ureteral calculus. There is no evidence of infection. The patient has had some intermittent colic during this hospitalization; patient was given the option of the stone manipulation versus spontaneous passage. The patient would like to try to pass this spontaneously; given prescription of [place]; follow-up in Urology office in one week. He has been instructed to contact me sooner if the pain returns or if she has fever and chills. Patient Condition at Discharge: Good Plan - Discharge Summary Discharge Rx Participant: No New Discharge Prescriptions: New HYDROcodone/APAP 5-325MG [[place] 5-325] 1 tab PO Q4HR PRN #14 tab PRN Reason: Pain Tamsulosin [Flomax] 0.4 mg PO PC-SUPPER #30 cap.er.24h Continue Zolpidem [Ambien] 10 mg PO HS Losartan [Cozaar] 50 mg PO DAILY LORazepam [Ativan] 1 mg PO HS PRN PRN Reason: Anxiety metFORMIN HCL 500 mg PO BID Nitrofurantoin Monohyd/M-Cryst [Macrobid] 100 mg PO Q12HR Ibuprofen [Motrin] 800 mg PO Q8H PRN PRN Reason: Pain Discharge Medication List Zolpidem [Ambien] 10 mg PO HS 04/07/14 [History] Losartan [Cozaar] 50 mg PO DAILY 02/04/16 [History] LORazepam [Ativan] 1 mg PO HS PRN 12/01/17 [History] Ibuprofen [Motrin] 800 mg PO Q8H PRN 05/10/21 [History] Nitrofurantoin Monohyd/M-Cryst [Macrobid] 100 mg PO Q12HR 05/10/21 [History] metFORMIN HCL 500 mg PO BID 05/10/21 [History] HYDROcodone/APAP 5-325MG [[place] 5-325] 1 tab PO Q4HR PRN #14 tab 05/12/21 [Rx] Tamsulosin [Flomax] 0.4 mg PO PC-SUPPER #30 cap.er.24h 05/12/21 [Rx] Follow up Appointment(s)/Referral(s): Ashish Smith MD [Primary Care Provider] - 1-2 days Juan Francisco Foote MD [STAFF PHYSICIAN] - 1 Week Activity/Diet/Wound Care/Special Instructions: Norify Dr Foote of any worsening pain or symptoms. Call Dr Foote Friday to schedule an appt in one week. Any fever, chills, or concerning symptoms notify your DR or return to the ER. Discharge Disposition: HOME SELF-CARE
== END 2021-05-12 15:31 | disposition home or self-care (01) ==
LOC: EC 21:13 → INTOOBSV 05-11 00:03 → 5NMEDONC 05-11 00:03 → 6PED 05-11 11:08 → UNDODISIN 05-12 15:31
PROVIDERS: ADMIT Hospitalist; ATTEND Hospitalist
DX: N23 Unspecified renal colic (principal); N12 Tubulo-interstitial nephritis, not specified as acute or chronic; E11.65 Type 2 diabetes mellitus with hyperglycemia; E66.01 Morbid (severe) obesity due to excess calories; Z68.41 Body mass index [BMI] 40.0-44.9, adult; N83.8 Other noninflammatory disorders of ovary, fallopian tube and broad ligament; R11.2 Nausea with vomiting, unspecified; R19.7 Diarrhea, unspecified; D72.829 Elevated white blood cell count, unspecified; M54.9 Dorsalgia, unspecified; R35.0 Frequency of micturition; N13.30 Unspecified hydronephrosis; N85.2 Hypertrophy of uterus; I10 Essential (primary) hypertension; M25.511 Pain in right shoulder; M79.601 Pain in right arm; N76.0 Acute vaginitis; F32.9 Major depressive disorder, single episode, unspecified; F41.9 Anxiety disorder, unspecified; Z20.822 Contact with and (suspected) exposure to COVID-19; Z87.440 Personal history of urinary (tract) infections; Z79.899 Other long term (current) drug therapy; Z79.84 Long term (current) use of oral hypoglycemic drugs; Z90.49 Acquired absence of other specified parts of digestive tract; Z90.710 Acquired absence of both cervix and uterus
CPT/HCPCS: 96376 ×3; 96366 ×4; 96361; 96365; 96375; 99285; 36415; 80053; 82150; 83605; 83690; 85025; 81001; 81025; 83036; 87635; 76856; 76770; 74176; G0378 ×3; J2270 ×3; J2405 ×2; J0696 ×3; J1885

== ENCOUNTER → 2021-05-25 | Outpatient (CLI) | payer OTHER | END | disposition home or self-care (01) ==

== ENCOUNTER 2021-06-05 08:39 | Day surgery (SDC) | payer OTHER ==
--- NOTE | 2021-06-04 09:26 | HP ---
HISTORY AND PHYSICAL CHIEF COMPLAINT: Right shoulder pain and stiffness. HISTORY OF PRESENT ILLNESS: Patient is a 45-year-old right-hand dominant female who presents with right shoulder pain and stiffness for the past several months. She is having a difficult time with any overhead motion. She has tried therapy in addition to an injection without much relief. She has also been taking anti-inflammatories. PAST MEDICAL HISTORY: Significant for type 2 diabetes. PAST SURGICAL HISTORY: Significant for hysterectomy. CURRENT MEDICATIONS: Ambien, Ativan, losartan, and metformin. ALLERGIES: She denies drug allergies. FAMILY HISTORY: Significant for heart disease. SOCIAL HISTORY: Negative for current tobacco or alcohol use. REVIEW OF SYSTEMS: Sixteen-point review of systems is otherwise reviewed and is noncontributory. PHYSICAL EXAMINATION: On examination, the patient is approximately 5 foot 4, 234 pounds of endomorphic habitus. HEENT exam is nonfocal. Range of motion of her neck are somewhat limited with a mildly positive Spurling's to the right. On examination of her right shoulder, she is tender about the anterior subacromial space. She has mild subacromial crepitus. Active range of motion forward elevation 115 degrees, external rotation with arm at side 55 degrees, internal rotation to the buttock. Passively I am able to forward elevate her to 115 degrees. Impingement test, Neer test, and Speed tests are positive. Her distal neurovascular exam otherwise appears intact in the right upper extremity. IMPRESSION: 1. Right shoulder adhesive capsulitis. 2. Pdt-dmogvhx-csrbauxik diabetes. RECOMMENDATIONS: I talked to the patient at length regarding her condition and treatment options. At this point she is quite limited because of stiffness and pain despite previous conservative measures. After thorough discussion, she opts to proceed with manipulation under anesthesia with a subacromial cortisone injection. Risks and benefits were discussed at length in layman's terms. We will likely perform that as an outpatient procedure utilizing local anesthetic and IV sedation. MMODL / IJN: [id number] /
[2021-06-04 10:10] VITALS: BMI 38.8
[~2021-06-05 08:39] MED LIST: DEXAMETHASONE SOD PHOSPHATE 4 MG/ML 1 ML VIAL IV ONE; MIDAZOLAM 2 MG/2 ML VIAL IV PRN; ONDANSETRON 4 MG/2 ML VIAL IVP ONE; Pre Op ABX Message 1 EACH MISC MISCELLANE ONE; SCOPOLAMINE 1.5MG/72HR PATCH TRANSDERM ONE
[2021-06-05 09:11] VITALS: TEMP 97.7
[2021-06-05 09:18] LABS: Glucose,Whole Blood 204 mg/dL (75-99)
[2021-06-05] MEDS ORDERED: LIDOCAINE 1% (10MG/ML) FOR IV START INTRADERMA ONE (09:20)
[2021-06-05] MEDS ORDERED: INSULIN ASPART (NovoLOG) 100 UNIT/ML VIAL SQ ONE (09:29)
[2021-06-05] MEDS: LACTATED RINGERS 1,000 ML IV SCH ×3 (09:31→13:09)
[2021-06-05] MEDS ORDERED: PROPOFOL 10 MG/ML 20 ML VIAL IV ONE (09:58)
[2021-06-05] MEDS ORDERED: BUPIVACAINE (PF) 0.25% 30 ML VIAL MISCELLANE ONE (10:18)
[2021-06-05] MEDS ORDERED: methylPREDNISolone ACETATE 80 MG/ML 1 ML VIAL INJ ONE (10:18)
[2021-06-05] MEDS: HYDROmorphone 0.5 MG/0.5 ML SYRINGE IVP PRN ×5 (10:25→10:55)
--- NOTE | 2021-06-05 10:25 | P.OP ---
Date of Procedure: 06/05/21 Preoperative Diagnosis: Right shoulder adhesive capsulitis Postoperative Diagnosis: Same Procedure(s) Performed: Manipulation under anesthesia right shoulder with a subacromial cortisone injection Anesthesia: MAC Surgeon: Lisandro Dominguez Estimated Blood Loss (ml): 0 Pathology: none sent Condition: stable Disposition: PACU Indications for Procedure: The patient's 45-year-old female presents with progressive right shoulder pain and stiffness secondary to adhesive capsulitis despite conservative measures. A discussion of the risks and benefits of manipulation under anesthesia was made with the patient. She opted to proceed. Specific risks of this procedure to include fracture, tendon rupture, recurrence of stiffness and need for subsequent procedures was discussed. Informed consent was obtained. Operative Findings: As below Description of Procedure: The patient was brought to the recovery room, and after induction of IV sedation I then gently manipulated the right shoulder first with the arm at the side. I obtained full external rotation. Moderate adhesions were encountered. I then obtained full forward elevation. Again I encountered moderate adhesions. The posterior aspect the shoulder was then prepped with ChloraPrep. 80 mg of methylprednisolone along with 4 mL of quarter percent plain Marcaine was injected into the subacromial space. She was then monitored until fully awake. No complications were incurred. There was no blood loss.
[2021-06-05] MEDS ORDERED: HYDROmorphone 1 MG/ML 1 ML SYRINGE ONE ×2 (10:27→10:51)
[2021-06-05] MEDS ORDERED: KETOROLAC 15 MG/ML 1 ML VIAL ONE (10:40)
[2021-06-05] MEDS ORDERED: KETOROLAC 15 MG/ML 1 ML VIAL IVP ONE (10:45)
[2021-06-05] MEDS ORDERED: HYDROmorphone 0.5 MG/0.5 ML SYRINGE IVP ONE (11:14)
[2021-06-05 11:57] VITALS: RESP 18
[2021-06-05 12:22] VITALS: BP 149/74; PULSE 72
[2021-06-05] MEDS ORDERED: ONDANSETRON 4 MG/2 ML VIAL IVP ONE (12:45)
[2021-06-05] MEDS ORDERED: ONDANSETRON 4 MG/2 ML VIAL ONE (12:48)
[2021-06-05 13:00] LABS: Glucose,Whole Blood 258 mg/dL (75-99)
== END 2021-06-05 13:14 | disposition home or self-care (01) ==
LOC: OR 08:39
PROVIDERS: ATTEND Orthopaedic Surgery
DX: M75.01 Adhesive capsulitis of right shoulder (principal); Z79.899 Other long term (current) drug therapy; E11.9 Type 2 diabetes mellitus without complications; Z79.84 Long term (current) use of oral hypoglycemic drugs; I10 Essential (primary) hypertension; Z87.442 Personal history of urinary calculi
CPT/HCPCS: 20610; 23700; J1040; J1100; J2405; J1885; J2704; J1170

== ENCOUNTER 2021-06-22 01:46 | Emergency (ER) | payer OTHER ==
[2021-06-22 01:50] VITALS: TEMP 98.1
[2021-06-22 02:18] LABS: Basophils % (A) 0 %; Eosinophils # (A) 0.2 k/uL (0-0.7); Eosinophils % (A) 2 %; HCT 40.1 % (34.0-46.0); HGB 13.7 gm/dL (11.4-16.0); Lymphocytes # (A) 2.1 k/uL (1.0-4.8); Lymphocytes % (A) 24 %; MCH 29.8 pg (25.0-35.0); MCHC 34.3 g/dL (31.0-37.0); MCV 86.9 fL (80.0-100.0); Mean Platelet Volume 7.2; Monocytes # (A) 0.3 k/uL (0-1.0); Monocytes % (A) 3 %; Neutrophils # (A) 6.2 k/uL (1.3-7.7); Neutrophils % (A) 70 %; Platelet Count 270 k/uL (150-450); RBC 4.61 m/uL (3.80-5.40); RDW 12.2 % (11.5-15.5); WBC 8.9 k/uL (3.8-10.6)
[2021-06-22 02:21] LABS: Appearance,Urine Cloudy (Clear); Bacteria,Urine Rare /hpf; Bilirubin,Urine Negative (Negative); Blood,Urine Moderate (Negative); Color,Urine Yellow; Glucose,Urine (UA) Trace (Negative); Hyaline Casts,Urine 1 /lpf (0-2); Ketones,Urine Trace (Negative); Leukocyte Esterase,Urine Moderate (Negative); Mucus,Urine Occasional /hpf; Nitrite,Urine Negative (Negative); PH, Urine 5.5 (5.0-8.0); Protein,Urine Trace (Negative); RBC,Urine 7 /hpf (0-5); Specific Gravity,Urine 1.027 (1.001-1.035); Squamous Epithelial Cell,Urine 10 /hpf (0-4); Urobilinogen,Urine <2.0 mg/dL (<2.0); WBC,Urine 11 /hpf (0-5)
[2021-06-22 02:30] LABS: ALT 16 U/L (4-34); AST 18 U/L (14-36); African American GFR (CKD) >90 (>60 ml/min/1.73 sqM); Albumin 3.9 g/dL (3.5-5.0); Alkaline Phosphatase 74 U/L (38-126); Amylase 59 U/L (30-110); Anion Gap 9 mmol/L; Blood Urea Nitrogen 12 mg/dL (7-17); Calcium 9.2 mg/dL (8.4-10.2); Carbon Dioxide 22 mmol/L (22-30); Chloride 106 mmol/L (98-107); Glucose 184 mg/dL (74-99); Lipase 128 U/L (23-300); Non-African American GFR(CKD) >90 (>60 ml/min/1.73 sqM); Potassium 3.5 mmol/L (3.5-5.1); Sodium 137 mmol/L (137-145); Total Bilirubin 0.2 mg/dL (0.2-1.3); Total Protein 6.8 g/dL (6.3-8.2)
[2021-06-22] MEDS: MORPHINE SULFATE 4 MG/ML SYRINGE IV STA (03:03)
--- NOTE | 2021-06-22 03:43 | CT ---
EXAMINATION TYPE: CT abdomen pelvis w con DATE OF EXAM: 06/22/2021 COMPARISON: 05/10/2021 HISTORY: Left flank pain. history of kidney stones CT DLP: 1648.1 mGycm Automated exposure control for dose reduction was used. CONTRAST: Performed with IV Contrast, patient injected with 100ml mL of Isovue 300. Lung bases are clear. There is no pleural effusion. Heart size is normal. There is no pericardial eff usion. Liver spleen stomach pancreas gallbladder appear normal. The bile ducts are not dilated. There is no adrenal mass. The kidneys show satisfactory contrast opacification. There is no hydroneph rosis. The delayed images show normal renal excretion. There is no retroperitoneal adenopathy. Ureter s are not dilated. The bladder distends smoothly. There is no inguinal hernia. There is no free fluid in the pelvis. Uterus is anteverted. There is no mesenteric edema. There is no ascites or free air. There is no sign of a bowel obstruction. Cecum is in the midline. Appendix is superior and appears no rmal. Lumbar vertebra have fairly normal spacing and alignment. There is no evidence of compression fractur e. The bony pelvis is intact. The hip joints are intact. There is no hip dysplasia. IMPRESSION: Negative CT scan abdomen and pelvis. Normal appendix. No evidence of renal calculus or obstruction.
--- NOTE | 2021-06-22 04:17 | ED ---
Abdominal Pain HPI - General Chief Complaint: Abdominal Pain Stated Complaint: Side Pain Time Seen by Provider: 06/22/21 01:55 Source: patient Mode of arrival: ambulatory - Related Data Home Medications Medication Instructions Recorded Confirmed Zolpidem [Ambien] 10 mg PO HS 04/07/14 06/05/21 Losartan [Cozaar] 50 mg PO HS 02/04/16 06/05/21 LORazepam [Ativan] 1 mg PO HS PRN 12/01/17 06/05/21 Ibuprofen [Motrin] 800 mg PO Q8H PRN 05/10/21 06/04/21 metFORMIN HCL 500 mg PO BID 05/10/21 06/05/21 Acetaminophen [Tylenol] 500 - 1,000 mg PO Q4-6H PRN 06/04/21 06/05/21 Previous Rx's Medication Instructions Recorded HYDROcodone/APAP 5-325MG [Colman 1 tab PO Q6HR PRN #15 tab 06/05/21 5-325] Cephalexin [Keflex] 500 mg PO Q6HR #28 cap 06/22/21 Allergies Allergy/AdvReac Type Severity Reaction Status Date / Time No Known Allergies Allergy Verified 06/22/21 01:50 Review of Systems ROS Statement: Those systems with pertinent positive or pertinent negative responses have been documented in the HPI. ROS Other: All systems not noted in ROS Statement are negative. Past Medical History Past Medical History: Diabetes Mellitus, Hypertension Additional Past Medical History / Comment(s): ANEMIA, bacterial vaginosis, corneal abrasion,R arm pain, R shoulder tendonities, UTI, vertigo History of Any Multi-Drug Resistant Organisms: None Reported Past Surgical History: Adenoidectomy, Hysterectomy, Tonsillectomy Additional Past Surgical History / Comment(s): surgical removal of uterine tumors - March 2017 D&C, uterine ablation Past Anesthesia/Blood Transfusion Reactions: No Reported Reaction Past Psychological History: Anxiety, Depression Smoking Status: Never smoker Past Alcohol Use History: Occasional Past Drug Use History: None Reported Course Vital Signs 06/22/21 01:47 Temperature 98.1 F Pulse Rate 74 Respiratory 18 Rate Blood Pressure 165/85 O2 Sat by Pulse 96 Oximetry Medical Decision Making - Lab Data Result diagrams: 06/22/21 02:03 06/22/21 02:03 Lab Results 08/06/21 08/06/21 08/06/21 Range/Units 02:03 02:03 02:03 WBC 8.9 (3.8-10.6) k/uL RBC 4.61 (3.80-5.40) m/uL Hgb 13.7 (11.4-16.0) gm/dL Hct 40.1 (34.0-46.0) % MCV 86.9 (80.0-100.0) fL MCH 29.8 (25.0-35.0) pg MCHC 34.3 (31.0-37.0) g/dL RDW 12.2 (11.5-15.5) % Plt Count 270 (150-450) k/uL MPV 7.2 Neutrophils % 70 % Lymphocytes % 24 % Monocytes % 3 % Eosinophils % 2 % Basophils % 0 % Neutrophils # 6.2 (1.3-7.7) k/uL Lymphocytes # 2.1 (1.0-4.8) k/uL Monocytes # 0.3 (0-1.0) k/uL Eosinophils # 0.2 (0-0.7) k/uL Basophils # 0.0 (0-0.2) k/uL Sodium (137-145) mmol/L Potassium (3.5-5.1) mmol/L Chloride (98-107) mmol/L Carbon Dioxide (22-30) mmol/L Anion Gap mmol/L BUN (7-17) mg/dL Creatinine (0.52-1.04) mg/dL Est GFR (CKD-EPI)AfAm (>60 ml/min/1.73 sqM) Est GFR (CKD-EPI)NonAf (>60 ml/min/1.73 sqM) Glucose (74-99) mg/dL Calcium (8.4-10.2) mg/dL Total Bilirubin (0.2-1.3) mg/dL AST (14-36) U/L ALT (4-34) U/L Alkaline Phosphatase (38-126) U/L Total Protein (6.3-8.2) g/dL Albumin (3.5-5.0) g/dL Amylase (30-110) U/L Lipase (23-300) U/L Urine Color Yellow Urine Appearance Cloudy H (Clear) Urine pH 5.5 (5.0-8.0) Ur Specific [place] 1.027 (1.001-1.035) Urine Protein Trace H (Negative) Urine Glucose (UA) Trace H (Negative) Urine Ketones Trace H (Negative) Urine Blood Moderate H (Negative) Urine Nitrite Negative (Negative) Urine Bilirubin Negative (Negative) Urine Urobilinogen <2.0 (<2.0) mg/dL Ur Leukocyte Esterase Moderate H (Negative) Urine RBC 7 H (0-5) /hpf Urine WBC 11 H (0-5) /hpf Ur Squamous Epith Cells 10 H (0-4) /hpf Urine Bacteria Rare H (None) /hpf Hyaline Casts 1 (0-2) /lpf Urine Mucus Occasional H (None) /hpf Urine HCG, Qual Not Detected (Not Detectd) 06/22/21 Range/Units 02:03 WBC (3.8-10.6) k/uL RBC (3.80-5.40) m/uL Hgb (11.4-16.0) gm/dL Hct (34.0-46.0) % MCV (80.0-100.0) fL MCH (25.0-35.0) pg MCHC (31.0-37.0) g/dL RDW (11.5-15.5) % Plt Count (150-450) k/uL MPV Neutrophils % % Lymphocytes % % Monocytes % % Eosinophils % % Basophils % % Neutrophils # (1.3-7.7) k/uL Lymphocytes # (1.0-4.8) k/uL Monocytes # (0-1.0) k/uL Eosinophils # (0-0.7) k/uL Basophils # (0-0.2) k/uL Sodium 137 (137-145) mmol/L Potassium 3.5 (3.5-5.1) mmol/L Chloride 106 (98-107) mmol/L Carbon Dioxide 22 (22-30) mmol/L Anion Gap 9 mmol/L BUN 12 (7-17) mg/dL Creatinine 0.48 L (0.52-1.04) mg/dL Est GFR (CKD-EPI)AfAm >90 (>60 ml/min/1.73 sqM) Est GFR (CKD-EPI)NonAf >90 (>60 ml/min/1.73 sqM) Glucose 184 H (74-99) mg/dL Calcium 9.2 (8.4-10.2) mg/dL Total Bilirubin 0.2 (0.2-1.3) mg/dL AST 18 (14-36) U/L ALT 16 (4-34) U/L Alkaline Phosphatase 74 (38-126) U/L Total Protein 6.8 (6.3-8.2) g/dL Albumin 3.9 (3.5-5.0) g/dL Amylase 59 (30-110) U/L Lipase 128 (23-300) U/L Urine Color Urine Appearance (Clear) Urine pH (5.0-8.0) Ur Specific [place] (1.001-1.035) Urine Protein (Negative) Urine Glucose (UA) (Negative) Urine Ketones (Negative) Urine Blood (Negative) Urine Nitrite (Negative) Urine Bilirubin (Negative) Urine Urobilinogen (<2.0) mg/dL Ur Leukocyte Esterase (Negative) Urine RBC (0-5) /hpf Urine WBC (0-5) /hpf Ur Squamous Epith Cells (0-4) /hpf Urine Bacteria (None) /hpf Hyaline Casts (0-2) /lpf Urine Mucus (None) /hpf Urine HCG, Qual (Not Detectd) Disposition Clinical Impression: Urinary tract infection Disposition: HOME SELF-CARE Condition: Good Instructions (If sedation given, give patient instructions): Urinary Tract Infection in Women (ED), Flank Pain (ED) Prescriptions: Cephalexin [Keflex] 500 mg PO Q6HR #28 cap Is patient prescribed a controlled substance at d/c from ED?: No Referrals: Ashish Smith MD [Primary Care Provider] - 1-2 days
[2021-06-22 05:08] VITALS: BP 147/85; PULSE 67; RESP 20
== END 2021-06-22 05:05 | disposition home or self-care (01) ==
LOC: EC 01:46
DX: N39.0 Urinary tract infection, site not specified (principal); I10 Essential (primary) hypertension; E11.9 Type 2 diabetes mellitus without complications; F32.9 Major depressive disorder, single episode, unspecified; F41.9 Anxiety disorder, unspecified; Z79.84 Long term (current) use of oral hypoglycemic drugs
CPT/HCPCS: 36415; 74177; 80053; 81001; 81025; 82150; 83690; 85025; 87086; 96365; 96375; 99284

== ENCOUNTER → 2021-10-15 | Outpatient (CLI) | payer OTHER ==
--- NOTE | 2021-10-15 13:52 | XR ---
EXAMINATION TYPE: XR KUB DATE OF EXAM: 10/15/2021 COMPARISON: 06/04/2021 HISTORY: Left flank pain TECHNIQUE: One view abdominal series FINDINGS: The osseous structures are intact. The bowel gas pattern is nonspecific. Lung bases are clear. Hyper trophic changes and arthropathy of the hips correlate for femoral acetabular impingement. 2 mm left h emipelvic calcification is stable. No definite suspicious calcifications overlying the renal outlines . IMPRESSION: 1. Nonspecific abdomen. Stable 2 mm nonspecific left hemipelvic calcification.
== END | disposition home or self-care (01) ==
LOC: RADXRMAIN 13:36
PROVIDERS: ATTEND Urology
DX: R10.9 Unspecified abdominal pain (principal)
CPT/HCPCS: 74018

== ENCOUNTER 2022-01-07 17:54 | Observation (INO) | payer OTHER ==
--- NOTE | 2022-01-07 19:13 | ED ---
General Adult HPI - General Chief complaint: Chest Pain Stated complaint: Chest pain Time Seen by Provider: 01/07/22 18:35 Source: patient, RN notes reviewed, old records reviewed Mode of arrival: wheelchair Limitations: no limitations - History of Present Illness Initial comments: This is a 46-year-old female presents emergency Department with any chest pain over the last 2 hours. Patient states the pain radiates to her back and up her neck. Patient states she's also mildly short of breath with the chest pain. Patient states she was diaphoretic earlier and she was very nauseous earlier. Patient states she has diabetes and high blood pressure and has a strong family history. Patient denies smoking and high cholesterol. Patient denies any h istory of heart disease for herself. Patient denies any palpitations. Patient denies lightheadedness dizziness or near syncopal episode. Patient denies any numbness weakness. Patient denies any recent fever chills or cough per patient denies abdominal pain patient denies nausea vomiting diarrhea. Patient denies any swelling of the legs or calf tenderness. - Related Data Home Medications Medication Instructions Recorded Confirmed Zolpidem [Ambien] 10 mg PO HS 04/07/14 01/07/22 Losartan [Cozaar] 50 mg PO HS 02/04/16 01/07/22 LORazepam [Ativan] 1 mg PO HS PRN 12/01/17 01/07/22 metFORMIN HCL 500 mg PO BID 05/10/21 01/07/22 Calcium Carbonate [Tums] 500 mg PO ACHS PRN 01/07/22 01/07/22 Simethicone [Gas-X] 125 mg PO ACHS PRN 01/07/22 01/07/22 sitaGLIPtin PHOSPHATE [Januvia] 100 mg PO DAILY 01/07/22 01/07/22 Allergies Allergy/AdvReac Type Severity Reaction Status Date / Time No Known Allergies Allergy Verified 01/07/22 19:25 Review of Systems ROS Statement: Those systems with pertinent positive or pertinent negative responses have been documented in the HPI. ROS Other: All systems not noted in ROS Statement are negative. Past Medical History Past Medical History: Diabetes Mellitus, Hypertension Additional Past Medical History / Comment(s): ANEMIA, bacterial vaginosis, corneal abrasion,R arm pain, R shoulder tendonities, UTI, vertigo History of Any Multi-Drug Resistant Organisms: None Reported Past Surgical History: Adenoidectomy, Hysterectomy, Tonsillectomy Additional Past Surgical History / Comment(s): surgical removal of uterine tumors - March 2017 D&C, uterine ablation Past Anesthesia/Blood Transfusion Reactions: No Reported Reaction Past Psychological History: Anxiety, Depression Smoking Status: Never smoker Past Alcohol Use History: Occasional Past Drug Use History: None Reported General Exam - General Exam Comments Initial Comments: GENERAL: Patient is well-developed and well-nourished. Patient is nontoxic and well- hydrated and is in mild distress. ENT: Neck is soft and supple. No significant lymphadenopathy is noted. Oropharynx is clear. Moist mucous membranes. Neck has full range of motion without eliciting any pain. EYES: The sclera were anicteric and conjunctiva were pink and moist. Extraocular movements were intact and pupils were equal round and reactive to light. Eyelids were unremarkable. PULMONARY: Unlabored respirations. Good breath sounds bilaterally. No audible rales rhonchi or wheezing was noted. CARDIOVASCULAR: There is a regular rate and rhythm without any murmurs gallops or rubs. ABDOMEN: Soft and nontender with normal bowel sounds. SKIN: Skin is clear with no lesions or rashes and otherwise unremarkable. NEUROLOGIC: Patient is alert and oriented x3. Cranial nerves II through XII are grossly intact. Motor and sensory are also intact. Normal speech, volume and content. Symmetrical smile. MUSCULOSKELETAL: Normal extremities with adequate strength and full range of motion. LYMPHATICS: No significant lymphadenopathy is noted PSYCHIATRIC: Normal psychiatric evaluation. 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 EKG shows no ST segment elevation or depression Patient received aspirin and Nitropaste emergency department did help her feel better. Chest x-ray shows no acute abnormality. I spoke with Dr. JOE agreed to admit the patient admitted the patient wrote admitting orders I consult cardiology. - Lab Data Result diagrams: 01/07/22 19:22 01/07/22 19:22 Lab Results 01/07/22 01/07/22 01/07/22 Range/Units 19:22 19:22 19:22 WBC 7.1 (3.8-10.6) k/uL RBC 4.96 (3.80-5.40) m/uL Hgb 14.5 (11.4-16.0) gm/dL Hct 44.0 (34.0-46.0) % MCV 88.7 (80.0-100.0) fL MCH 29.2 (25.0-35.0) pg MCHC 32.9 (31.0-37.0) g/dL RDW 12.8 (11.5-15.5) % Plt Count 314 (150-450) k/uL MPV 7.0 Neutrophils % 69 % Lymphocytes % 24 % Monocytes % 3 % Eosinophils % 3 % Basophils % 0 % Neutrophils # 4.9 (1.3-7.7) k/uL Lymphocytes # 1.7 (1.0-4.8) k/uL Monocytes # 0.2 (0-1.0) k/uL Eosinophils # 0.2 (0-0.7) k/uL Basophils # 0.0 (0-0.2) k/uL PT 10.3 (9.0-12.0) sec INR 0.9 (<1.2) APTT 23.0 (22.0-30.0) sec Sodium 137 (137-145) mmol/L Potassium 3.8 (3.5-5.1) mmol/L Chloride 105 (98-107) mmol/L Carbon Dioxide 25 (22-30) mmol/L Anion Gap 7 mmol/L BUN 10 (7-17) mg/dL Creatinine 0.59 (0.52-1.04) mg/dL Est GFR (CKD-EPI)AfAm >90 (>60 ml/min/1.73 sqM) Est GFR (CKD-EPI)NonAf >90 (>60 ml/min/1.73 sqM) Glucose 240 H (74-99) mg/dL Calcium 9.5 (8.4-10.2) mg/dL Magnesium 1.6 (1.6-2.3) mg/dL Total Bilirubin 0.8 (0.2-1.3) mg/dL AST 16 (14-36) U/L ALT 15 (4-34) U/L Alkaline Phosphatase 65 (38-126) U/L Troponin I (0.000-0.034) ng/mL Total Protein 7.2 (6.3-8.2) g/dL Albumin 3.9 (3.5-5.0) g/dL 01/07/22 Range/Units 19:22 WBC (3.8-10.6) k/uL RBC (3.80-5.40) m/uL Hgb (11.4-16.0) gm/dL Hct (34.0-46.0) % MCV (80.0-100.0) fL MCH (25.0-35.0) pg MCHC (31.0-37.0) g/dL RDW (11.5-15.5) % Plt Count (150-450) k/uL MPV Neutrophils % % Lymphocytes % % Monocytes % % Eosinophils % % Basophils % % Neutrophils # (1.3-7.7) k/uL Lymphocytes # (1.0-4.8) k/uL Monocytes # (0-1.0) k/uL Eosinophils # (0-0.7) k/uL Basophils # (0-0.2) k/uL PT (9.0-12.0) sec INR (<1.2) APTT (22.0-30.0) sec Sodium (137-145) mmol/L Potassium (3.5-5.1) mmol/L Chloride (98-107) mmol/L Carbon Dioxide (22-30) mmol/L Anion Gap mmol/L BUN (7-17) mg/dL Creatinine (0.52-1.04) mg/dL Est GFR (CKD-EPI)AfAm (>60 ml/min/1.73 sqM) Est GFR (CKD-EPI)NonAf (>60 ml/min/1.73 sqM) Glucose (74-99) mg/dL Calcium (8.4-10.2) mg/dL Magnesium (1.6-2.3) mg/dL Total Bilirubin (0.2-1.3) mg/dL AST (14-36) U/L ALT (4-34) U/L Alkaline Phosphatase (38-126) U/L Troponin I <0.012 (0.000-0.034) ng/mL Total Protein (6.3-8.2) g/dL Albumin (3.5-5.0) g/dL Disposition Clinical Impression: Chest pain Disposition: ADMITTED IP TO THIS [facility] Referrals: Ashish Smith MD [Primary Care Provider] - 1-2 days Time of Disposition: 20:18
[2022-01-07] MEDS ORDERED: NITROGLYCERIN OINT 1 INCH/GM PACKET TOPICAL STA (19:20)
[2022-01-07] MEDS ORDERED: ASPIRIN 81 MG PO STA (19:20)
[2022-01-07 19:29] LABS: Basophils % (A) 0 %; Eosinophils # (A) 0.2 k/uL (0-0.7); Eosinophils % (A) 3 %; HGB 14.5 gm/dL (11.4-16.0); Lymphocytes # (A) 1.7 k/uL (1.0-4.8); Lymphocytes % (A) 24 %; MCH 29.2 pg (25.0-35.0); MCHC 32.9 g/dL (31.0-37.0); MCV 88.7 fL (80.0-100.0); Monocytes # (A) 0.2 k/uL (0-1.0); Monocytes % (A) 3 %; Neutrophils # (A) 4.9 k/uL (1.3-7.7); Neutrophils % (A) 69 %; Platelet Count 314 k/uL (150-450); RBC 4.96 m/uL (3.80-5.40); RDW 12.8 % (11.5-15.5); WBC 7.1 k/uL (3.8-10.6)
[2022-01-07 19:32] LABS: ALT 15 U/L (4-34); AST 16 U/L (14-36); African American GFR (CKD) >90 (>60 ml/min/1.73 sqM); Albumin 3.9 g/dL (3.5-5.0); Alkaline Phosphatase 65 U/L (38-126); Anion Gap 7 mmol/L; Blood Urea Nitrogen 10 mg/dL (7-17); Calcium 9.5 mg/dL (8.4-10.2); Carbon Dioxide 25 mmol/L (22-30); Chloride 105 mmol/L (98-107); Glucose 240 mg/dL (74-99); Magnesium 1.6 mg/dL (1.6-2.3); Non-African American GFR(CKD) >90 (>60 ml/min/1.73 sqM); Potassium 3.8 mmol/L (3.5-5.1); Sodium 137 mmol/L (137-145); Total Bilirubin 0.8 mg/dL (0.2-1.3); Total Protein 7.2 g/dL (6.3-8.2)
[2022-01-07 19:48] LABS: INR 0.9 (<1.2); Prothrombin Time 10.3 sec (9.0-12.0)
[2022-01-07] MEDS ORDERED: NITROGLYCERIN SL TABS 0.4 MG TAB SUBLINGUAL PRN (20:19)
--- NOTE | 2022-01-07 20:30 | XR ---
EXAMINATION TYPE: XR chest 2V DATE OF EXAM: 01/07/2022 COMPARISON: 06/04/2019 HISTORY: Chest pain TECHNIQUE: Frontal and lateral views of the chest are obtained. FINDINGS: The lungs are hypoaerated. No focal air space opacity, pleural effusion, or pneumothorax s een. The cardiac silhouette size is within normal limits. The osseous structures are intact. IMPRESSION: No acute cardiopulmonary process.
[2022-01-07] MEDS ORDERED: ACETAMINOPHEN TAB 500 MG TAB PO STA (20:32)
[2022-01-07] MEDS ORDERED: metFORMIN 500 MG TAB PO STA (22:10)
[2022-01-07] MEDS ORDERED: ZOLPIDEM 5 MG TAB PO STA (22:11)
[2022-01-08] MEDS: NITROGLYCERIN OINT 1 INCH/GM PACKET TOPICAL SCH ×2 (01:15→05:23)
[2022-01-08 07:08] LABS: HCG,Qualitative Serum Not Detected
--- NOTE | 2022-01-08 07:50 | P.CRDCN ---
History of Present Illness Consult date: 01/08/22 History of present illness: The patient is a 46-year-old female who presents with symptoms of chest discomfort. She has a history of hypertension and diabetes. She had chest discomfort radiating to the back with nausea at rest and persisted. She came into the emergency room to be further evaluated. She had mild similar symptoms in the past but she stopped were related to GI origin. She is average in her exercise tolerance, has no exertional chest discomfort, dyspnea on exertion, dizziness or palpitations. She denies any PND, orthopnea or peripheral edema. She has no prior cardiac history or recent cardiac workup. She has a history of hypertension and diabetes, she is a nonsmoker. Her medication at home include Januvia, metformin and losartan. Her lab data showed a troponin less than 0.012, BUN and creatinine of 10 and 0.59. Her EKG showed no acute ST segment changes. Review of system: Respiratory: No history of asthma, bronchitis or recent cough. GI: She had nausea and vomiting today. No history of peptic ulcer disease. No recent GI bleed. : No hematuria or dysuria. Nervous System: No stroke or seizure. Physical examination: 46 old female, alert, oriented no apparent distress. Blood pressure 119/60 with a heart rate in the 80s. Head: Normocephalic. Eyes: Sclerae nonicteric. Neck: Good carotid upstroke, no bruit, no jugular venous distention. Lungs: Clear to auscultation. Heart: Regular rate and rhythm, S1-S2, no S3, no rub. Systolic ejection murmur at the base, 2/6 Abdomen: Soft nontender, positive bowel sounds no organomegaly. Extremities: No edema, intact distal pulses. Impression: 1. Chest discomfort of unclear etiology, no evidence of acute coronary syndrome in a patient with multiple risk factors 2. History of hypertension 3. History of diabetes Plan: 1. Obtain an echocardiogram with Doppler 2. Stress echocardiogram to further evaluate her symptoms 3. Continue home medication 4. Obtain lipid profile 5. Depending on her progress further recommendations will be made. Thank you for this consult we will follow with you. Past Medical History Past Medical History: Diabetes Mellitus, Hypertension Additional Past Medical History / Comment(s): ANEMIA, bacterial vaginosis, corneal abrasion,R arm pain, R shoulder tendonities, UTI, vertigo History of Any Multi-Drug Resistant Organisms: None Reported Past Surgical History: Adenoidectomy, Hysterectomy, Tonsillectomy Additional Past Surgical History / Comment(s): surgical removal of uterine tumors - March 2017 D&C, uterine ablation Past Anesthesia/Blood Transfusion Reactions: No Reported Reaction Past Psychological History: Anxiety, Depression Smoking Status: Never smoker Past Alcohol Use History: Occasional Past Drug Use History: None Reported Medications and Allergies Home Medications Medication Instructions Recorded Confirmed Type Zolpidem [Ambien] 10 mg PO HS 04/07/14 01/07/22 History Losartan [Cozaar] 50 mg PO HS 02/04/16 01/07/22 History LORazepam [Ativan] 1 mg PO HS PRN 12/01/17 01/07/22 History metFORMIN HCL 500 mg PO BID 05/10/21 01/07/22 History Calcium Carbonate [Tums] 500 mg PO ACHS PRN 01/07/22 01/07/22 History Simethicone [Gas-X] 125 mg PO ACHS PRN 01/07/22 01/07/22 History sitaGLIPtin PHOSPHATE [Januvia] 100 mg PO DAILY 01/07/22 01/07/22 History Allergies Allergy/AdvReac Type Severity Reaction Status Date / Time No Known Allergies Allergy Verified 01/07/22 19:25 Physical Exam Vitals: Vital Signs Temp Pulse Pulse Resp BP Pulse Ox 01/08/22 05:25 82 16 119/68 98 01/08/22 04:08 89 18 96 01/08/22 02:07 83 16 120/83 96 01/08/22 00:34 81 16 120/71 95 01/07/22 22:05 98.7 F 80 18 120/73 98 01/07/22 18:55 101 H 18 169/104 96 01/07/22 18:52 86 01/07/22 17:56 98.6 F 95 20 180/106 98 Intake and Output 01/07/22 01/08/22 01/08/22 22:59 06:59 14:59 Other: Weight 106.594 kg Results 01/07/22 19:22 01/07/22 19:22 Cardiac Enzymes 01/07/22 01/07/22 01/07/22 Range/Units 19:22 19:22 22:47 AST 16 (14-36) U/L Troponin I <0.012 <0.012 (0.000-0.034) ng/mL 01/08/22 01/08/22 Range/Units 01:45 06:23 AST (14-36) U/L Troponin I <0.012 <0.012 (0.000-0.034) ng/mL Coagulation 01/07/22 Range/Units 19: PT 10.3 (9.0-12.0) sec APTT 23.0 (22.0-30.0) sec CBC 01/07/22 Range/Units 19: WBC 7.1 (3.8-10.6) k/uL RBC 4.96 (3.80-5.40) m/uL Hgb 14.5 (11.4-16.0) gm/dL Hct 44.0 (34.0-46.0) % Plt Count 314 (150-450) k/uL Comprehensive Metabolic Panel 01/07/22 Range/Units 19: Sodium 137 (137-145) mmol/L Potassium 3.8 (3.5-5.1) mmol/L Chloride 105 (98-107) mmol/L Carbon Dioxide 25 (22-30) mmol/L BUN 10 (7-17) mg/dL Creatinine 0.59 (0.52-1.04) mg/dL Glucose 240 H (74-99) mg/dL Calcium 9.5 (8.4-10.2) mg/dL AST 16 (14-36) U/L ALT 15 (4-34) U/L Alkaline Phosphatase 65 (38-126) U/L Total Protein 7.2 (6.3-8.2) g/dL Albumin 3.9 (3.5-5.0) g/dL Current Medications Generic Name Dose Route Start Last Admin Trade Name Freq PRN Reason Stop Dose Admin Aspirin 81 mg 01/08/22 09:00 Aspirin 325 Mg Tab PO DAILY VASQUEZ Losartan Potassium 50 mg 01/08/22 21:00 Losartan 50 Mg Tab PO HS VASQUEZ Nitroglycerin 0.4 mg 01/07/22 20:19 Nitroglycerin Sl Tabs 0.4 Mg Tab SUBLINGUAL Q5M PRN Chest Pain Non-Formulary Medication 100 mg 01/08/22 09:00 Sitagliptin Phosphate [Januvia] PO DAILY VASQUEZ Intake and Output 02/21/22 02/22/22 02/22/22 22:59 06:59 14:59 Other: Weight 106.594 kg 01/07/22 19:22 01/07/22 19:22
[2022-01-08] MEDS: ASPIRIN 81 MG PO SCH (08:46)
--- NOTE | 2022-01-08 08:59 | ECHOF ---
Referral Reason:cp MEASUREMENTS -------- HEIGHT: 162.6 cm WEIGHT: 106.6 kg BP: 119/68 RVIDd: 3.2 cm (< 3.3) IVSd: 1.1 cm (0.6 - 1.1) LVIDd: 4.1 cm (3.9 - 5.3) LVPWd: 1.1 cm (0.6 - 1.1) IVSs: 1.6 cm LVIDs: 2.6 cm LVPWs: 1.7 cm LA Diam: 3.0 cm (2.7 - 3.8) LAESV Index (A-L): 15.32 ml/m Ao Diam: 3.0 cm (2.0 - 3.7) AV Cusp: 2.3 cm (1.5 - 2.6) MV EXCURSION: 12.148 mm (> 18.000) MV EF SLOPE: 80 mm/s (70 - 150) EPSS: 0.7 cm MV E Kwaku: 0.69 m/s MV DecT: 279 ms MV A Kwaku: 0.86 m/s MV E/A Ratio: 0.80 FINDINGS -------- Sinus rhythm. This was a technically adequate study. The left ventricular size is normal. There is borderline concentric left ventricular hypertrophy. Overall left ventricular systolic function is normal with, an EF between 55 - 60 %. The diastolic filling pattern is normal for the age of the patient 7.54. The right ventricle is normal in size. Normal LA size by volume 22+/-6 ml/m2. The right atrial size is normal. Interatrial and interventricular septum intact. The aortic valve is trileaflet, and appears structurally normal. No aortic stenosis or regurgitation. The mitral valve is normal. There is trace mitral regurgitation. The tricuspid valve appears structurally normal. Mild tricuspid regurgitation present. Unable to estimate RVSP due to inadequate TR jet spectral doppler profile. The pulmonic valve is normal. The aortic root size is normal. Normal inferior vena cava with normal inspiratory collapse consistent with estimated right atrial pre ssure of 5 mmHg. There is no pericardial effusion. CONCLUSIONS -------- 1. There is borderline concentric left ventricular hypertrophy. 2. Overall left ventricular systolic function is normal with, an EF between 55 - 60 %. 3. The aortic valve is trileaflet, and appears structurally normal. No aortic stenosis or regurgitati on. 4. There is trace mitral regurgitation. 5. Mild tricuspid regurgitation present. 6. There is no pericardial effusion. DATA CONVERSION OPERATOR: Judith Holly RDCS
[2022-01-08] MEDS ORDERED: ASPIRIN 325 MG TAB PO SCH (09:00)
[2022-01-08] MEDS: LINAGLIPTIN 5 MG TABLET PO SCH (12:17)
[2022-01-08] MEDS: SODIUM CHLORIDE 0.9% 1,000 ML IV SCH (14:51)
--- NOTE | 2022-01-08 15:30 | ECHOS ---
STRESS ECHOCARDIOGRAM INDICATIONS: Chest pain BASELINE HEART RATE: 76 BASELINE BLOOD PRESSURE: 126/83 MAXIMUM HEART RATE: 152 MAXIMUM BLOOD PRESSURE: 197/82 85% MPHR: 148 100% MPHR: 174 METS: 7.3 MAXIMUM STAGE REACHED: 2 TOTAL EXERCISE TIME: 6:01 CLINICAL INFORMATION: Baseline rhythm is sinus mechanism, rate of 76, normal axis and intervals, nonspecific ST-T wave changes. Baseline blood pressure 126/83 mmHg. Patient exercised on Ben protocol for 6 minutes 1 second, reaching peak rate of 152 beats per minute, which is equal to 87% of maximum predicted heart rate. Peak blood pressure 197/82 mmHg. Test was terminated secondary to fatigue. There was no chest pain. Electrocardiograph monitoring revealed no evidence of diagnostic ischemic ST deviation. FINDINGS: Baseline echocardiogram revealed normal wall thickening and motion. At peak exercise there was normal wall motion augmentation with no hypokinesis or dyskinesis. CONCLUSION: 1. Decreased exercise tolerance with normal electrocardiographic response to exercise. 2. Normal stress echocardiogram with no evidence of stress-induced ischemia. MMODL / IJN: [id number] /
[2022-01-08] MEDS ORDERED: hydrOXYzine HCL 25 MG TAB PO PRN (15:51)
[2022-01-08] MEDS ORDERED: hydrOXYzine HCL 25 MG TAB PO STA (15:51)
[2022-01-08] MEDS ORDERED: RX INFO: IV CONTRAST WAS GIVEN 1 EACH MISC MISCELLANE PRN (16:12)
--- NOTE | 2022-01-08 16:39 | P.HPIM ---
History of Present Illness This is a pleasant 46 years old -[place] female with past medical history of diabetes mellitus, hypertension, vertigo, anxiety and depression Reasons because of chest pain Of one-day duration felt like burning and some think stuck in her chest and radiated as 9/10 down now to 6-7/10. Associated with feeling dizzy and nauseous sweating, and patient vomited once while she was in the waiting room. Her dizziness is gone now but she still have chest pain. Denies dyspnea or coughing. No diarrhea. No abdominal pain. No urinary complaints. No headache or weakness or numbness. No leg pain or swelling She drinks alcohol occasionally, no smoking or illicit tracts. Manufacturers Service Representative already saw the patient and cleared her for discharge from their perspective after negative stress test. Also patient complaining of from cutaneous welts and says that these are common and usually she takes Atarax at home which she has to be given here in the hospital Hemodynamically she is stable. Labs including CBC, BMP, liver enzymes are unremarkable Glucose 240 Troponin 2 are negative less than 0.012. Chest x-ray: No acute process. He showed normal sinus rhythm at [address]-T changes and QTC 414. In the emergency room patient was started on aspirin Review of Systems Review of systems CONSTITUTIONAL: No fever, no malaise, no fatigue. HEENT: No recent visual problems or hearing problems. Denied any sore throat. CARDIOVASCULAR: No orthopnea, PND, no palpitations, no syncope. PULMONARY: No shortness of breath, no cough, no hemoptysis. GASTROINTESTINAL: No diarrhea, no nausea, no vomiting, no abdominal pain. Normoactive bowel sounds. NEUROLOGICAL: No headaches, no weakness, no numbness. HEMATOLOGICAL: Denies any bleeding or petechiae. GENITOURINARY: Denies any burning micturition, frequency, or urgency. MUSCULOSKELETAL/RHEUMATOLOGICAL: Denies any joint pain, swelling, or any muscle pain. ENDOCRINE: Denies any polyuria or polydipsia. Past Medical History Past Medical History: Diabetes Mellitus, Hypertension Additional Past Medical History / Comment(s): ANEMIA, bacterial vaginosis, corneal abrasion,R arm pain, R shoulder tendonities, UTI, vertigo History of Any Multi-Drug Resistant Organisms: None Reported Past Surgical History: Adenoidectomy, Hysterectomy, Tonsillectomy Additional Past Surgical History / Comment(s): surgical removal of uterine tumors - March 2017 D&C, uterine ablation Past Anesthesia/Blood Transfusion Reactions: No Reported Reaction Past Psychological History: Anxiety, Depression Smoking Status: Never smoker Past Alcohol Use History: Occasional Past Drug Use History: None Reported Medications and Allergies Home Medications Medication Instructions Recorded Confirmed Type Zolpidem [Ambien] 10 mg PO HS 04/07/14 01/07/22 History Losartan [Cozaar] 50 mg PO HS 02/04/16 01/07/22 History LORazepam [Ativan] 1 mg PO HS PRN 12/01/17 01/07/22 History metFORMIN HCL 500 mg PO BID 05/10/21 01/07/22 History Calcium Carbonate [Tums] 500 mg PO ACHS PRN 01/07/22 01/07/22 History Simethicone [Gas-X] 125 mg PO ACHS PRN 01/07/22 01/07/22 History sitaGLIPtin PHOSPHATE [Januvia] 100 mg PO DAILY 01/07/22 01/07/22 History Allergies Allergy/AdvReac Type Severity Reaction Status Date / Time No Known Allergies Allergy Verified 01/07/22 19:25 Physical Exam Vitals: Vital Signs Temp Pulse Pulse Resp BP BP Pulse Ox 01/08/22 14:47 97.7 F 84 18 121/72 98 01/08/22 10:00 95 24 01/08/22 08:18 98.1 F 24 124/80 98 01/08/22 05:25 82 16 119/68 98 01/08/22 04:08 89 18 96 01/08/22 02:07 83 16 120/83 96 01/08/22 00:34 81 16 120/71 95 01/07/22 22:05 98.7 F 80 18 120/73 98 01/07/22 18:55 101 H 18 169/104 96 01/07/22 18:52 86 01/07/22 17:56 98.6 F 95 20 180/106 98 Intake and Output 01/08/22 01/08/22 01/08/22 06:59 14:59 22:59 Other: Voiding Method Toilet # Voids 1 Weight 106.594 kg 106.59 kg GENERAL: The patient is alert and oriented x3, not in any acute distress. Obese HEENT: Pupils are round and equally reacting to light. EOMI. No scleral icterus. No conjunctival pallor. Normocephalic, atraumatic. No pharyngeal erythema. No thyromegaly. CARDIOVASCULAR: S1 and S2 present. No murmurs, rubs, or gallops. PULMONARY: Chest is clear to auscultation, no wheezing or crackles. ABDOMEN: Soft, nontender, nondistended, normoactive bowel sounds. No palpable organomegaly. MUSCULOSKELETAL: No joint swelling or deformity. EXTREMITIES: No cyanosis, clubbing, or pedal edema. NEUROLOGICAL: Gross neurological examination did not reveal any focal deficits. -SKIN: No rashes. no petechiae. Some welts on the upper trunk and chest Results CBC & Chem 7: 01/07/22 19:22 01/07/22 19:22 Labs: Abnormal Lab Results - Last 24 Hours (Table) 01/07/22 01/08/22 01/08/22 Range/Units 19:22 06:23 15:21 D-Dimer 0.80 H (<0.60) mg/L FEU Glucose 240 H (74-99) mg/dL Triglycerides 197.00 H (0.00-149.00) mg/dL HDL Cholesterol 35.60 L (40.00-60.00) mg/dL Assessment and Plan Assessment: Chest pain, cardiac causes ruled out. With elevated d-dimer, rule out pulmonary embolism Cutaneous [place], most likely ALLERGIC. Patient usually on Atarax at home Diabetes mellitus Hypertension History of vertigo History of anxiety and depression Obesity with BMI of 40.3 Plan: This is a pleasant 46 years old female who presents with chest pain Manufacturers Service Representative already cleared the patient for discharge with negative stress test Given the patient's persistent chest pain associated with dizziness and other symptoms and elevated d-dimer, is highly suspicious for pulmonary embolism, risk of contrast with CTA of the chest is explained for the patient including but not limited to ALLERGIC reaction nephrotoxicity patient verbalized understanding and acceptance. Rule out Doppler of the leg to rule out DVT Continue with normal saline at 75 mL/h Atarax when necessary Labs and medication were reviewed.. Continue same treatment. Continue with symptomatic treatment. Resume home medication. Monitor lytes and vitals. DVT and GI prophylaxis. Further recommendations as per clinical course of the fanny ent DVT prophylaxis: Subcutaneous heparin GI Prophylaxis: Pepcid Prognosis is guarded
--- NOTE | 2022-01-08 16:51 | US ---
EXAMINATION TYPE: US venous doppler duplex LE DATE OF EXAM: 01/08/2022 4:44 PM COMPARISON: NONE CLINICAL HISTORY: leg swelling. Leg swelling. No hx of DVT. SIDE PERFORMED: Bilateral TECHNIQUE: The lower extremity deep venous system is examined utilizing real time linear array sonog norma with graded compression, doppler sonography and color-flow sonography. VESSELS IMAGED: Common Femoral Vein Deep Femoral Vein Greater Saphenous Vein * Femoral Vein Popliteal Vein Small Saphenous Vein * Proximal Calf Veins (* superficial vessels) Exam is limited due to swelling and body habitus. Right Leg: No evidence of DVT in veins imaged at this time. Right groin lymph node: 3.0 x 1.4 x 0.6 cm. Left Leg: No evidence of DVT in veins imaged at this time. IMPRESSION: No evidence of deep vein thrombosis of the lower extremities
--- NOTE | 2022-01-08 17:30 | CT ---
EXAMINATION TYPE: CT angio chest CT DLP: 488.5 mGycm, Automated exposure control for dose reduction was used. DATE OF EXAM: 01/08/2022 5:12 PM COMPARISON: Chest radiograph from 07/07/2022. CLINICAL INDICATION:Female, 46 years old with history of PE protocol , rule out PE; chest pain TECHNIQUE/CONTRAST: CTA scan of the thorax is performed with IV Contrast, patient injected with 100 mL of Isovue 370, pul monary embolism protocol. MIP images are created and reviewed. FINDINGS: Pulmonary Artery: There is no evidence for a filling defect within the pulmonary vasculature to sugge st acute pulmonary embolism. The pulmonary artery is of normal size. Lungs/Pleura: No evidence of focal consolidation, pleural effusion or pneumothorax. Right upper lobe pleural-based partially calcified nodule measuring up to 8 mm Airway: Large airways are patent. Heart: Within normal limits for size.. Vasculature: No evidence of aortic aneurysm. Mediastinum: No gross evidence of adenopathy. Musculoskeletal: No acute osseous abnormalities Soft Tissues: Unremarkable. Lower neck: No significant findings. Upper Abdomen: No significant findings. IMPRESSION: 1. No evidence of pulmonary embolism. 2. Partially calcified right upper lobe nodule which may represent a pulmonary hamartoma,
[2022-01-08] MEDS: FAMOTIDINE 20 MG/2 ML VIAL IV SCH (20:35)
[2022-01-08] MEDS ORDERED: ZOLPIDEM 10 MG TAB PO SCH (21:00)
[2022-01-08] MEDS ORDERED: LOSARTAN 50 MG TAB PO SCH (21:00)
[2022-01-08] MEDS: HEPARIN SODIUM,PORCINE/PF 5,000 UNIT/0.5 ML SYRINGE SQ SCH (21:53)
[2022-01-09 03:12] VITALS: TEMP 98
[2022-01-09] MEDS: SODIUM CHLORIDE 0.9% 1,000 ML IV SCH (05:53)
[2022-01-09 07:09] VITALS: BP 110/71; PULSE 68; RESP 21
[2022-01-09] MEDS: ASPIRIN 81 MG PO SCH (08:45)
[2022-01-09] MEDS: LINAGLIPTIN 5 MG TABLET PO SCH (08:45)
[2022-01-09] MEDS: FAMOTIDINE 20 MG/2 ML VIAL IV SCH (08:46)
[2022-01-09] MEDS: HEPARIN SODIUM,PORCINE/PF 5,000 UNIT/0.5 ML SYRINGE SQ SCH (08:48)
[2022-01-09 11:18] LABS: African American GFR (CKD) 123.2 (60.0-200.0); Anion Gap 10.8 mmol/L (10.00-18.00); BUN/Creat Ratio 16.08 Ratio (12.00-20.00); Blood Urea Nitrogen 10.5 mg/dL (9.0-27.0); Calcium 8.4 mg/dL (8.7-10.3); Carbon Dioxide 23.4 mmol/L (20.0-27.5); Non-African American GFR(CKD) 106.3 (60.0-200.0); Potassium 3.9 mmol/L (3.5-5.5)
--- NOTE | 2022-01-09 20:31 | P.DS ---
Providers Date of admission: 01/07/22 20:26 Attending physician: Danny Keys MD Consults: 01/07/22 20:19 Consult Physician Urgent Consulting Provider: [facility] Consult Reason/Comments: Chest pain Do you want consulting provider notified?: Yes Primary care physician: Luis Hinojosa Hospital Course: Diagnoses: Chest pain, cardiology and pulmonary causes ruled out. Chest pain resolved upon discharge elevated d-dimer, with negative CTPA for pulmonary embolism and negative Doppler for DVT in both legs Cutaneous [place], most likely ALLERGIC. Patient usually on Atarax at home Diabetes mellitus Hypertension History of vertigo History of anxiety and depression Obesity with BMI of 40.3 Hospital course: This is a pleasant 46 years old -[place] female with past medical history of diabetes mellitus, hypertension, vertigo, anxiety and depression Reasons because of chest pain. She underwent negative stress test and biosolids management technician and cleared her for discharge. D-dimer was elevated 0.8 and CTA of the chest was negative for PE and venous Doppler was negative for DVT. Chest pain resolved prior to discharge and she was chest pain-free 0/10. She denies any other symptoms, no dyspnea or coughing, no change in urine or bowel habits. No fever. Patient was cleared for discharge by biosolids management technician Problems and management plan were discussed with the patient and he verbalized understanding and acceptance Patient was found stable and can be discharged home however he needs follow-up as an outpatient. Patient was instructed to follow up with PCP Dr. Serna within one week and patient agrees Patient was instructed to follow up with Dr. Guerrero biosolids management technician in 1-2 weeks and department manager and 2-3 weeks for pulmonary nodule and she agrees and ask staff to make and help her with appointments. Physical exam Gen: patient is a AAOx3, no distress CVS: S1-S2, RRR, no murmur Lungs: B/L CTA, no wheezing Abdomen: soft, no distention, no tenderness, positive bowel sounds Extremity: no leg edema or induration Time spent more than 35 minutes Plan - Discharge Summary Discharge Rx Participant: No New Discharge Prescriptions: New Famotidine [Pepcid] 20 mg PO BID #60 tab Continue Zolpidem [Ambien] 10 mg PO HS Losartan [Cozaar] 50 mg PO HS LORazepam [Ativan] 1 mg PO HS PRN PRN Reason: Anxiety metFORMIN HCL 500 mg PO BID Calcium Carbonate [Tums] 500 mg PO ACHS PRN PRN Reason: Gi Upset sitaGLIPtin PHOSPHATE [Januvia] 100 mg PO DAILY Simethicone [Gas-X] 125 mg PO ACHS PRN PRN Reason: Bloating Discharge Medication List Zolpidem [Ambien] 10 mg PO HS 04/07/14 [History] Losartan [Cozaar] 50 mg PO HS 02/04/16 [History] LORazepam [Ativan] 1 mg PO HS PRN 12/01/17 [History] metFORMIN HCL 500 mg PO BID 05/10/21 [History] Calcium Carbonate [Tums] 500 mg PO ACHS PRN 01/07/22 [History] Simethicone [Gas-X] 125 mg PO ACHS PRN 01/07/22 [History] sitaGLIPtin PHOSPHATE [Januvia] 100 mg PO DAILY 01/07/22 [History] Famotidine [Pepcid] 20 mg PO BID #60 tab 01/09/22 [Rx] Follow up Appointment(s)/Referral(s): Kiko Guerrero MD [STAFF PHYSICIAN] - 1 Week (Heart Dr. biosolids management technician will call pt to schedule) Ashish Smith MD [Primary Care Provider] - 1-2 days Qamar Jose DO [Doctor of Osteopathic Medicine] - 01/18/22 9:00 am (lung doctor for your right upper lung nodule) Patient Instructions/Handouts: Chest Pain (DC) Activity/Diet/Wound Care/Special Instructions: Heart healthy diet Activity is restricted till you see your doctor Discharge Disposition: HOME SELF-CARE
[2022-01-09] MEDS ORDERED: FAMOTIDINE 20 MG TAB PO SCH (21:00)
== END 2022-01-09 13:35 | disposition home or self-care (01) ==
LOC: EC 17:54 → 6NMEDSUR 20:26
PROVIDERS: ADMIT Internal Medicine; ATTEND Internal Medicine
DX: R07.89 Other chest pain (principal); R79.89 Other specified abnormal findings of blood chemistry; E11.9 Type 2 diabetes mellitus without complications; I10 Essential (primary) hypertension; R06.02 Shortness of breath; R11.2 Nausea with vomiting, unspecified; R61 Generalized hyperhidrosis; R42 Dizziness and giddiness; D64.9 Anemia, unspecified; F32.A Depression, unspecified; F41.9 Anxiety disorder, unspecified; R91.1 Solitary pulmonary nodule; Z68.41 Body mass index [BMI] 40.0-44.9, adult; E66.9 Obesity, unspecified; L98.9 Disorder of the skin and subcutaneous tissue, unspecified; Z79.84 Long term (current) use of oral hypoglycemic drugs; Z79.899 Other long term (current) drug therapy; Z87.828 Personal history of other (healed) physical injury and trauma; Z87.440 Personal history of urinary (tract) infections; Z87.39 Personal history of other diseases of the musculoskeletal system and connective tissue; Z90.710 Acquired absence of both cervix and uterus; Z87.42 Personal history of other diseases of the female genital tract; Z98.890 Other specified postprocedural states; Z82.49 Family history of ischemic heart disease and other diseases of the circulatory system
CPT/HCPCS: 96376; 96372; 96374; 99285; 36415; 94760; 93005; 93306; 93351; 85379; 80061; 80053; 80048; 83735; 84484 ×2; 85025; 85610; 85730; 84703; 71046; 93970; 71275; G0378 ×3; Q9967; J1644

== ENCOUNTER → 2022-09-24 | Outpatient (CLI) | payer OTHER ==
--- NOTE | 2022-09-25 03:41 | CONS ---
CONSULTATION REASON FOR CONSULTATION: Suspected sleep apnea. HISTORY OF PRESENT ILLNESS: This is a very pleasant 47-year-old female patient, who is coming in for chronic sleep-related issues. Note that I initially consulted on this patient back on 07/03/2016. At that time, the patient was having a very irregular sleep schedule, fairly poor sleep hygiene measures and she also had issues with chronic insomnia. At that time, the patient was unable to maintain regular schedule, regular sleep hygiene measures and she was also having a component of advanced sleep phase syndrome. Based on that, I educated this patient on maintaining a regular sleep schedule implementing good sleep hygiene measures and try to regulate her sleep schedule by addition of a combination of Ambien and Restoril. This worked for a while and the patient was able to achieve a good 6 hours of sleep and she was getting her Ambien refilled through Dr. Lopez. Ultimately, she was unable to get her refills. She was given trazodone instead of Ambien 50 mg, which did not impact her sleep. 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 She is working Tuesdays, Wednesdays and between 11 p.m. and 8 a.m. in the morning. On all those working days, she sleeps between 10 a.m. and 3 p.m. On her days off, she sleeps between midnight and 4 a.m. in the morning. She is unable to sleep longer based on the fact that she is unable to take her Ambien for now. As mentioned, trazodone did not affect her sleeping ability. At the same time, she is concerned that she may have an underlying sleep apnea along with chronic insomnia. At times, she is waking up choking and gasping for air. She is also a snorer. We decided to also investigate this patient for the possibility of obstructive sleep apnea. Otherwise, she has taken Ambien for many years without any major side effects. No sleepwalking. Her functionality at work has been adequate. She is able to work the midnight shift without any major difficulties. No new onset comorbid conditions. She is taking metformin for a low-grade diabetes mellitus. No significant weight gain. No history of any periodic limb movement activity. No anxiety. No depression. She is a nose breather. PAST MEDICAL HISTORY: Chronic insomnia, obesity, hypertension, history of nasal septal perforation, history of diabetes mellitus. PAST SURGICAL HISTORY: Includes adenoid and tonsil resection, partial hysterectomy with ablation. DRUG ALLERGIES: Not known. OUTPATIENT MEDICATIONS: Includes metformin 500 mg twice a day, trazodone 50 mg at bedtime, and hydroxyzine 10 mg as needed. SOCIAL HISTORY: Drinks alcohol socially. Nonsmoker. No history of substance abuse. FAMILY HISTORY: Negative for insomnia or sleep breathing disorder. REVIEW OF SYSTEMS: A 14-point review of system was done. Positive findings are mentioned above in the history of present illness. PHYSICAL EXAMINATION: VITAL SIGNS: BP is 150/84, pulse 99, respirations 20, temperature 97.1 saturation 97% on room air. [place] Score is at 9. Weight is 237, BMI 39.8. Neck size is 15-3/4 of an inch. GENERAL APPEARANCE: Calm, comfortable. HEENT: Head atraumatic, normocephalic. NECK: Supple. Mallampati class 4. There is no goiter or neck masses. LUNGS: Clear to auscultation. HEART: Sounds are regular rate and rhythm. Normal S1, S2. No S3, S4. No murmurs. ABDOMEN: Soft, nontender. No organomegaly. EXTREMITIES: No edema. No cyanosis or clubbing. NEUROLOGIC: Awake, alert. There are no focal neurological deficits. IMPRESSION: 1. Chronic insomnia. The patient is unable to generate more than 4 hours of sleep while off Ambien. Note that the patient had a history of irregular sleep schedule and poor sleep hygiene measures in addition to an advanced sleep phase syndrome. 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 Nevertheless, in the absence of a hypnotic agent, she is unable to generate more than 4 hours of sleep. The possibility of obstructive sleep apnea is also being entertained as another cause for sleep fragmentation and frequent nocturnal arousals. 2. 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 3. Obesity with a BMI of 39.8. 4. Hypertension. 5. Diabetes mellitus. 6. History of nasal septal perforation. PLAN: 1. We will restart the patient on 10 mg of Ambien and stop trazodone. Ambien will be taken 30 minutes prior to bedtime. Should be able to take it on her days off where she goes to sleep at midnight, and on her days up when she goes to bed at around 8 a.m. 2. Side-effect profile of the medication was explained and she has verbalized understanding. 3. Stop trazodone. 4. Maintain regular sleep schedule. 5. Weight loss. 6. Proceed with a screening polysomnogram which will be a nighttime study on her day off to evaluate for sleep apnea. SYLVIE / KEVAN: [id number] /
== END ==
LOC: SLEEP 15:35
PROVIDERS: ATTEND Internal Medicine Critical Care Medicine
DX: G47.33 Obstructive sleep apnea (adult) (pediatric) (principal); E66.9 Obesity, unspecified; Z68.39 Body mass index [BMI] 39.0-39.9, adult; I10 Essential (primary) hypertension; E11.9 Type 2 diabetes mellitus without complications; Q30.3 Congenital perforated nasal septum

== ENCOUNTER 2022-11-29 09:26 | Emergency (ER) | payer OTHER ==
[2022-11-29 09:30] VITALS: TEMP 98.4
[2022-11-29] MEDS ORDERED: ONDANSETRON ODT 8 MG TAB.RAPDIS PO STA (10:07)
[2022-11-29] MEDS ORDERED: SODIUM CHLORIDE 0.9% 1,000 ML IV STA (10:07)
[2022-11-29] MEDS ORDERED: PANTOPRAZOLE 40 MG/10 ML VIAL IVP STA (10:08)
[2022-11-29] MEDS ORDERED: FAMOTIDINE 20 MG/2 ML VIAL IV STA (10:08)
[2022-11-29] MEDS ORDERED: MAG HYDROX/AL HYDROX/SIMETH 30 ML, HYOSCYAMINE ELIXIR 10 ML, LIDOCAINE VISCOUS 2% 10 ML PO STA ×3 (10:08)
[2022-11-29 10:23] LABS: Basophils % (A) 1 %; Eosinophils # (A) 0.1 k/uL (0-0.7); Eosinophils % (A) 2 %; HCT 38.3 % (34.0-46.0); Lymphocytes # (A) 1.4 k/uL (1.0-4.8); Lymphocytes % (A) 23 %; MCH 29.6 pg (25.0-35.0); MCHC 33.9 g/dL (31.0-37.0); MCV 87.1 fL (80.0-100.0); Mean Platelet Volume 7.4; Monocytes # (A) 0.3 k/uL (0-1.0); Monocytes % (A) 4 %; Neutrophils # (A) 4.3 k/uL (1.3-7.7); Neutrophils % (A) 69 %; Platelet Count 266 k/uL (150-450); RBC 4.39 m/uL (3.80-5.40); RDW 12.4 % (11.5-15.5); WBC 6.3 k/uL (3.8-10.6)
[2022-11-29 10:48] LABS: ALT 27 U/L (4-34); AST 23 U/L (14-36); African American GFR (CKD) >90 (>60 ml/min/1.73 sqM); Albumin 3.6 g/dL (3.5-5.0); Alkaline Phosphatase 69 U/L (38-126); Anion Gap 8 mmol/L; Appearance,Urine Cloudy (Clear); Bacteria,Urine Occasional /hpf; Bilirubin,Urine Negative (Negative); Blood Urea Nitrogen 7 mg/dL (7-17); Blood,Urine Large (Negative); Calcium 8.1 mg/dL (8.4-10.2); Carbon Dioxide 25 mmol/L (22-30); Chloride 104 mmol/L (98-107); Color,Urine Yellow; Glucose 232 mg/dL (74-99); Glucose,Urine (UA) 2+ (Negative); Ketones,Urine Trace (Negative); Leukocyte Esterase,Urine Small (Negative); Lipase 129 U/L (23-300); Mucus,Urine Moderate /hpf; Nitrite,Urine Negative (Negative); Non-African American GFR(CKD) >90 (>60 ml/min/1.73 sqM); PH, Urine 5.5 (5.0-8.0); Potassium 3.8 mmol/L (3.5-5.1); Protein,Urine 1+ (Negative); RBC,Urine 18 /hpf (0-5); Sodium 137 mmol/L (137-145); Specific Gravity,Urine 1.026 (1.001-1.035); Squamous Epithelial Cell,Urine 3 /hpf (0-4); Total Bilirubin 0.4 mg/dL (0.2-1.3); Total Protein 6.4 g/dL (6.3-8.2); Urobilinogen,Urine <2.0 mg/dL (<2.0); WBC,Urine 7 /hpf (0-5)
--- NOTE | 2022-11-29 10:54 | XR ---
EXAMINATION TYPE: XR chest 2V DATE OF EXAM: 11/29/2022 10:42 AM COMPARISON: Chest radiographs from 01/07/2022. TECHNIQUE: XR chest 2V Frontal and lateral views of the chest. CLINICAL INDICATION:Female, 47 years old with history of epigastric pain; FINDINGS: Lungs/Pleura: There is no evidence of pleural effusion, focal consolidation, or pneumothorax. Pulmonary vascularity: Unremarkable. Heart/mediastinum: Cardiomediastinal silhouette is unremarkable. Musculoskeletal: No acute osseous pathology. IMPRESSION: No acute cardiopulmonary disease/process. No significant change from prior examination.
[2022-11-29] MEDS ORDERED: METOCLOPRAMIDE 5 MG/ML 2 ML VIAL IVP STA (11:41)
--- NOTE | 2022-11-29 11:45 | ED ---
Abdominal Pain HPI - General Chief Complaint: Abdominal Pain Stated Complaint: Abd pain Time Seen by Provider: 11/29/22 09:55 Source: patient Mode of arrival: ambulatory Limitations: no limitations - History of Present Illness Initial Comments: Patient is a 47-year-old female who presents to the emergency department with a chief complaint abdominal pain. Patient states for the past month she has experienced intermittent abdominal discomfort in the upper middle abdomen. There is no radiation. Pain is not related to food intake. She feels that she is significantly bloated. Taking gas x with some relief. She reports nausea without vomiting. Some constipation which she has been taking OTC medication for with daily bowel movements, nonbloody. No diarrhea. Patient states the discomfort and bloating has affected her activities of daily living and she does not have a primary care provider which is why she presents today. No chest pain or shortness of breath. Occasional alcohol use. Denies tobacco use. - Related Data Home Medications Medication Instructions Recorded Confirmed Zolpidem [Ambien] 10 mg PO HS 04/07/14 01/07/22 metFORMIN HCL 500 mg PO BID 05/10/21 01/07/22 Calcium Carbonate [Tums] 500 mg PO ACHS PRN 01/07/22 01/07/22 Simethicone [Gas-X] 125 mg PO ACHS PRN 01/07/22 01/07/22 Acetaminophen Tab [Tylenol] 650 mg PO Q6H PRN 11/29/22 11/29/22 Ibuprofen [Motrin Ib] 400 mg PO TID PRN 11/29/22 11/29/22 Previous Rx's Medication Instructions Recorded Famotidine [Pepcid] 20 mg PO BID #28 tablet 11/29/22 Metoclopramide [Reglan] 10 mg PO TID PRN #15 tab 11/29/22 Pantoprazole Sodium [Protonix] 40 mg PO DAILY #14 tab 11/29/22 Allergies Allergy/AdvReac Type Severity Reaction Status Date / Time No Known Allergies Allergy Verified 11/29/22 09:30 Review of Systems ROS Statement: Those systems with pertinent positive or pertinent negative responses have been documented in the HPI. ROS Other: All systems not noted in ROS Statement are negative. Past Medical History Past Medical History: Diabetes Mellitus, Hypertension Additional Past Medical History / Comment(s): ANEMIA, bacterial vaginosis, corneal abrasion,R arm pain, R shoulder tendonities, UTI, vertigo History of Any Multi-Drug Resistant Organisms: None Reported Past Surgical History: Adenoidectomy, Hysterectomy, Tonsillectomy Additional Past Surgical History / Comment(s): surgical removal of uterine tumors - March 2017 D&C, uterine ablation Past Anesthesia/Blood Transfusion Reactions: No Reported Reaction Past Psychological History: Anxiety, Depression Smoking Status: Never smoker Past Alcohol Use History: Occasional Past Drug Use History: None Reported General Exam Limitations: no limitations General appearance: alert, in no apparent distress Head exam: Present: atraumatic, normocephalic, normal inspection Respiratory exam: Present: normal lung sounds bilaterally. Absent: respiratory distress, wheezes, rales, rhonchi, stridor Cardiovascular Exam: Present: regular rate, normal rhythm, normal heart sounds. Absent: systolic murmur, diastolic murmur, rubs, gallop, clicks GI/Abdominal exam: Present: soft, tenderness (mild, epigastric), normal bowel sounds. Absent: distended, guarding, rebound, rigid Neurological exam: Present: alert, oriented X3, CN II-XII intact Psychiatric exam: Present: normal affect, normal mood Skin exam: Present: warm, dry, intact, normal color. Absent: rash Course Vital Signs 11/29/22 11/29/22 09:28 12:40 Temperature 98.4 F Pulse Rate 86 84 Respiratory 20 18 Rate Blood Pressure 141/92 138/74 O2 Sat by Pulse 99 98 Oximetry Medical Decision Making - Medical Decision Making Was pt. sent in by a medical professional or institution (, PA, HOSPITAL CNA, urgent care, hospital, or long term...) When possible be specific @ -[No] Did you speak to anyone other than the patient for history (EMS, parent, family, police, friend...)? What history was obtained from this source @ -[No] Did you review nursing and triage notes (agree or disagree)? Why? @ -[I reviewed and agree with nursing and triage notes] Were old charts reviewed (outside hosp., previous admission, EMS record, old EKG, old radiological studies, urgent care reports/EKG's, long term records)? Report findings @ -[No old charts were reviewed] Differential Diagnosis (chest pain, altered mental status, abdominal pain women, abdominal pain men, vaginal bleeding, weakness, fever, dyspnea, syncope, headache, dizziness, GI bleed, back pain, seizure, CVA, palpatations, mental health)? @ -hiatal hernia, gastroparesis, gastric ulcer, bowel obstruction EKG interpreted by me (3pts min.). @ -[As above] X-rays interpreted by me (1pt min.). @ -Yes, chest x-ray negative for acute process CT interpreted by me (1pt min.). @ -Yes, CT of abdomen and pelvis with contrast shows borderline a mildly enlarged mesenteric lymphadenopathy. Findings have progressive 06/22/21. There is also hepatomegaly with mild hepatic steatosis U/S interpreted by me (1pt. min.). @ -[None done] What testing was considered but not performed or refused? (CT, X-rays, U/S, labs)? Why? @ -[None] What meds were considered but not given or refused? Why? @ -[None] Did you discuss the management of the patient with other professionals (professionals i.e. , PA, HOSPITAL CNA, lab, RT, psych nurse, social media strategist, cro, teacher, life science technical officer, case advocate)? Give summary @ -[No] Was smoking cessation discussed for >3mins.? @ -[No] Was critical care preformed (if so, how long)? @ -[No] Were there social determinants of health that impacted care today? How? (Homelessness, low income, unemployed, alcoholism, drug addiction, transportation, low edu. Level, literacy, decrease access to med. care, intermediate, rehab)? @ -[No] Was there de-escalation of care discussed even if they declined (Discuss DNR or withdrawal of care, Hospice)? DNR status @ -[No] What co-morbidities impacted this encounter? (DM, HTN, Smoking, COPD, CAD, Cancer, CVA, ARF, Chemo, Hep., AIDS, mental health diagnosis, sleep apnea, morbid obesity)? @ -[None] Was patient admitted / discharged? Hospital course, mention meds given and route, prescriptions, significant lab abnormalities, going to OR and other pertinent info. @ -This is a 47-year-old female presenting with epigastric discomfort and bloating.Laboratory studies significant for the glycemia at 232. There is trace ketones and 2+ glucose in the urine. Patient is diabetic. Chest x-ray negative for acute process. CT abdomen and pelvis with contrast shows borderline and mildly enlarged mesenteric lymphadenopathy. Findings have progressive 06/22/21. There is also hepatomegaly with mild hepatic steatosis. patient given Pepcid, Protonix, Zofran, GI cocktail which improved abdominal discomfort. On reevaluation patient still feeling bloated. With concern for gastroparesis I then gave Reglan which improved symptoms. Case discussed with patient. She does not have primary care provider. She'll need to establish care for CT findings and further management. She'll be discharged with this Reglan, pepcid, protonix. Undiagnosed new problem with uncertain prognosis? @ -[No] Drug Therapy requiring intensive monitoring for toxicity (Heparin, Nitro, Insulin, Cardizem)? @ -[No] Were any procedures done? @ -[No] Diagnosis/symptom? @ -epigastric pain, bloating Acute, or Chronic, or Acute on Chronic? @-acute Uncomplicated (without systemic symptoms) or Complicated (systemic symptoms)? @ -uncomplicated Side effects of treatment? @ -[No] Exacerbation, Progression, or Severe Exacerbation? @ -[No] Poses a threat to life or bodily function? How? (Chest pain, USA, MT, pneumonia, PE, COPD, DKA, ARF, appy, cholecystitis, CVA, Diverticulitis, Homicidal, Suicidal, threat to staff... and all critical care pts) @ -[No] Dr. Kirk is my attending. - Lab Data Result diagrams: 11/29/22 10:16 11/29/22 10:16 Lab Results 11/29/22 11/29/22 11/29/22 Range/Units 10:16 10:16 10:16 WBC 6.3 (3.8-10.6) k/uL RBC 4.39 (3.80-5.40) m/uL Hgb 13.0 (11.4-16.0) gm/dL Hct 38.3 (34.0-46.0) % MCV 87.1 (80.0-100.0) fL MCH 29.6 (25.0-35.0) pg MCHC 33.9 (31.0-37.0) g/dL RDW 12.4 (11.5-15.5) % Plt Count 266 (150-450) k/uL MPV 7.4 Neutrophils % 69 % Lymphocytes % 23 % Monocytes % 4 % Eosinophils % 2 % Basophils % 1 % Neutrophils # 4.3 (1.3-7.7) k/uL Lymphocytes # 1.4 (1.0-4.8) k/uL Monocytes # 0.3 (0-1.0) k/uL Eosinophils # 0.1 (0-0.7) k/uL Basophils # 0.0 (0-0.2) k/uL Sodium 137 (137-145) mmol/L Potassium 3.8 (3.5-5.1) mmol/L Chloride 104 (98-107) mmol/L Carbon Dioxide 25 (22-30) mmol/L Anion Gap 8 mmol/L BUN 7 (7-17) mg/dL Creatinine 0.48 L (0.52-1.04) mg/dL Est GFR (CKD-EPI)AfAm >90 (>60 ml/min/1.73 sqM) Est GFR (CKD-EPI)NonAf >90 (>60 ml/min/1.73 sqM) Glucose 232 H (74-99) mg/dL Plasma Lactic Acid Polo (0.7-2.0) mmol/L Calcium 8.1 L (8.4-10.2) mg/dL Total Bilirubin 0.4 (0.2-1.3) mg/dL AST 23 (14-36) U/L ALT 27 (4-34) U/L Alkaline Phosphatase 69 (38-126) U/L Total Protein 6.4 (6.3-8.2) g/dL Albumin 3.6 (3.5-5.0) g/dL Lipase 129 (23-300) U/L Urine Color Yellow Urine Appearance Cloudy H (Clear) Urine pH 5.5 (5.0-8.0) Ur Specific [place] 1.026 (1.001-1.035) Urine Protein 1+ H (Negative) Urine Glucose (UA) 2+ H (Negative) Urine Ketones Trace H (Negative) Urine Blood Large H (Negative) Urine Nitrite Negative (Negative) Urine Bilirubin Negative (Negative) Urine Urobilinogen <2.0 (<2.0) mg/dL Ur Leukocyte Esterase Small H (Negative) Urine RBC 18 H (0-5) /hpf Urine WBC 7 H (0-5) /hpf Ur Squamous Epith Cells 3 (0-4) /hpf Urine Bacteria Occasional H (None) /hpf Urine Mucus Moderate H (None) /hpf 11/29/22 Range/Units 10:16 WBC (3.8-10.6) k/uL RBC (3.80-5.40) m/uL Hgb (11.4-16.0) gm/dL Hct (34.0-46.0) % MCV (80.0-100.0) fL MCH (25.0-35.0) pg MCHC (31.0-37.0) g/dL RDW (11.5-15.5) % Plt Count (150-450) k/uL MPV Neutrophils % % Lymphocytes % % Monocytes % % Eosinophils % % Basophils % % Neutrophils # (1.3-7.7) k/uL Lymphocytes # (1.0-4.8) k/uL Monocytes # (0-1.0) k/uL Eosinophils # (0-0.7) k/uL Basophils # (0-0.2) k/uL Sodium (137-145) mmol/L Potassium (3.5-5.1) mmol/L Chloride (98-107) mmol/L Carbon Dioxide (22-30) mmol/L Anion Gap mmol/L BUN (7-17) mg/dL Creatinine (0.52-1.04) mg/dL Est GFR (CKD-EPI)AfAm (>60 ml/min/1.73 sqM) Est GFR (CKD-EPI)NonAf (>60 ml/min/1.73 sqM) Glucose (74-99) mg/dL Plasma Lactic Acid Polo 1.5 (0.7-2.0) mmol/L Calcium (8.4-10.2) mg/dL Total Bilirubin (0.2-1.3) mg/dL AST (14-36) U/L ALT (4-34) U/L Alkaline Phosphatase (38-126) U/L Total Protein (6.3-8.2) g/dL Albumin (3.5-5.0) g/dL Lipase (23-300) U/L Urine Color Urine Appearance (Clear) Urine pH (5.0-8.0) Ur Specific [place] (1.001-1.035) Urine Protein (Negative) Urine Glucose (UA) (Negative) Urine Ketones (Negative) Urine Blood (Negative) Urine Nitrite (Negative) Urine Bilirubin (Negative) Urine Urobilinogen (<2.0) mg/dL Ur Leukocyte Esterase (Negative) Urine RBC (0-5) /hpf Urine WBC (0-5) /hpf Ur Squamous Epith Cells (0-4) /hpf Urine Bacteria (None) /hpf Urine Mucus (None) /hpf Disposition Clinical Impression: Epigastric pain, Abdominal bloating Disposition: HOME SELF-CARE Condition: Good Instructions (If sedation given, give patient instructions): Gastroparesis (ED) Additional Instructions: Please take medication as directed. It is important to establish with a primary care provider. Today you're CT showed large mesenteric lymph nodes which has progressed from your last CT on 06/22/21. There is also enlargement of your liver. Please establish care with a primary care provider for further evaluation and management of your symptoms and today's findings. Return to the emergency department experience new, concerning, or worsening symptoms. Prescriptions: Famotidine [Pepcid] 20 mg PO BID #28 tablet Pantoprazole Sodium [Protonix] 40 mg PO DAILY #14 tab Metoclopramide [Reglan] 10 mg PO TID PRN #15 tab PRN Reason: Nausea Is patient prescribed a controlled substance at d/c from ED?: No Referrals: None,Stated [Primary Care Provider] - 1-2 days
--- NOTE | 2022-11-29 12:14 | CT ---
EXAMINATION TYPE: CT abdomen pelvis w con DATE OF EXAM: 11/29/2022 COMPARISON: 06/22/2021 HISTORY: 47-year-old female Upper abdominal pain TECHNIQUE: Contiguous axial scanning of the abdomen and pelvis following administration of 100 ml Iso gregorio 300 IV contrast. Delayed images through the kidneys and coronal/sagittal reconstructions perform ed. CT DLP: 1891.1 mGycm Automated exposure control for dose reduction was used. FINDINGS: Normal in size without pericardial effusion. Strandy atelectasis in the lower lungs without pleural e ffusion. Liver enlarged at 20.1 cm. Low attenuation of the hepatic parenchyma. Portal venous system is patent. No biliary ductal dilatation. Gallbladder, adrenal glands, kidneys, spleen, and pancreas within normal limits. Numerous borderline and mildly enlarged mesenteric lymph nodes measuring up to 2.0 x 1.4 cm in the mi d abdomen. No retroperitoneal lymphadenopathy. No dilated small bowel, free fluid, or free air. Scattered mild stool. Normal appendix. No pericolic inflammatory change. Bladder partially distended. Query previous partial hysterectomy. There is a 2.8 cm cystic area along the midline, possibly a cyst of left ovary. Right ovary is visualized. Tiny pelvic phlebolith on the left. No abnormal fluid collection otherwise seen or pelvic lymphadenopathy. Bones: No osseous destructive process. IMPRESSION: 1. BORDERLINE AND MILDLY ENLARGED MESENTERIC LYMPHADENOPATHY MEASURING UP TO 2.0 X [address] PROGRESSED FROM 06/22/2021. DIFFERENTIAL CONSIDERATIONS INCLUDE MESENTERIC ADENITIS AND LOW-GRADE L YMPHOMA. APPROPRIATE FOLLOW-UP RECOMMENDED. 2. HEPATOMEGALY OF 20.1 CM WITH MILD HEPATIC STEATOSIS. 3. A 2.8 CM MIDLINE CYST IN THE PELVIS, LIKELY A DOMINANT FOLLICLE/FUNCTIONAL CYST OF THE LEFT OVARY. THERE SEEMS TO HAVE BEEN PREVIOUS PARTIAL HYSTERECTOMY. CLINICALLY CORRELATE.
[2022-11-29 12:40] VITALS: BP 138/74; PULSE 84; RESP 18
== END 2022-11-29 12:41 | disposition home or self-care (01) ==
LOC: EC 09:26
DX: R10.13 Epigastric pain (principal); R14.0 Abdominal distension (gaseous); I10 Essential (primary) hypertension; E11.9 Type 2 diabetes mellitus without complications; F41.9 Anxiety disorder, unspecified; F32.A Depression, unspecified; Z79.899 Other long term (current) drug therapy
CPT/HCPCS: 36415; 80053; 83605; 83690; 85025; 81001; 71046; 74177; 99284; 96374; 96375 ×2; 96361; J2765; C9113; Q9967

== ENCOUNTER → 2023-07-28 | Outpatient (CLI) | payer OTHER ==
--- NOTE | 2023-08-08 09:03 | MM ---
Reason for Exam: Screening (asymptomatic). Last mammogram was performed 2 year(s) and 3 month(s) ago. Patient History: Menarche at age 12. Patient has no children. Left ovary removed at age 45. Hysterectomy at age 45. Last menstrual period: Risk Values: Candi 5 year model risk: 1.0%. NCI Lifetime model risk: 10.3%. Prior Study Comparison: 10/07/1991 Screening Mammogram, Unknown. 08/01/1998 Bilateral Special View Mammogram, [facility]. 04/13/2021 Bilateral MG 3D screening mammo w/cad, [facility]. 04/27/2021 Right MG 3D work up w/cad RT, [facility]. Tissue Density: There are scattered fibroglandular densities. Findings: Analyzed By CAD. There is no suspicious group of microcalcifications or new suspicious mass in either breast. Overall Assessment: Negative, BI-RAD 1 Management: Screening Mammogram of both breasts in 1 year. . Patient should continue monthly self-breast exams. A clinical breast exam by your physician is recommended on an annual basis. This exam should not preclude additional follow-up of suspicious palpable abnormalities. Note on Candi scores and lifetime risk: 1. A Candi score greater than 3% is considered moderate risk. If this is the case, consider specialist referral to assess eligibility for a risk reducing agent. 2. If overall lifetime risk for the development of breast cancer is 20% or higher, the patient may qualify for future screening with alternating mammogram and breast MRI. Electronically signed and approved by: Gilmar Thomason M.D. Radiologis
== END | disposition home or self-care (01) ==
LOC: RADMAMWWP 12:55
PROVIDERS: ATTEND Family Medicine
DX: Z53.9 Procedure and treatment not carried out, unspecified reason (principal)

== ENCOUNTER → 2023-07-28 | Outpatient (CLI) | payer OTHER ==
--- NOTE | 2023-07-28 14:44 | XR ---
EXAMINATION TYPE: XR lumbar spine 2 or 3V DATE OF EXAM: 07/28/2023 CLINICAL HISTORY: pain TECHNIQUE: Three views of the lumbar spine are submitted. COMPARISON: None. FINDINGS: There are 5 lumbar type vertebral bodies identified. The lumbar spine shows satisfactory alignment w ithout evidence of acute fracture or dislocation. Vertebral body heights are within normal limits. Disc spaces are within normal limits. The overlying soft tissue appears unremarkable. IMPRESSION: No acute fracture or dislocation is seen in the lumbar spine. ICD 10 NO FRACTURE, INITIAL EVALUATION
== END | disposition home or self-care (01) ==
LOC: RADXRMAIN 14:06
PROVIDERS: ATTEND Family Medicine
DX: M54.50 Low back pain, unspecified (principal)
CPT/HCPCS: 72100

== ENCOUNTER → 2024-08-18 | Outpatient (CLI) | payer OTHER ==
[2024-08-18 19:43] LABS: Basophils # (A) 0.02 X 10*3/uL (0.00-0.10); Basophils % (A) 0.3 %; Eosinophils # (A) 0.14 X 10*3/uL (0.04-0.35); Eosinophils % (A) 2.2 %; HCT 42.4 % (37.2-46.3); Lymphocytes # (A) 1.94 X 10*3/uL (0.90-5.00); Lymphocytes % (A) 30.3 %; MCH 28.4 pg (27.0-32.0); Monocytes # (A) 0.32 X 10*3/uL (0.20-1.00); NRBC Per 100 WBC 0 X 10*3/uL (0.00-0.01); Neutrophils # (A) 3.95 X 10*3/uL (1.80-7.70); Neutrophils % (A) 61.7 %; Platelet Count 265 X 10*3/uL (140-440); RBC 4.93 X 10*6/uL (4.10-5.20); RDW 11.9 % (11.5-14.5)
[2024-08-18 23:38] LABS: ALT 17 U/L (8-44); AST 15 U/L (13-35); Albumin 4.2 g/dL (3.8-4.9); Albumin/Globulin Ratio 1.45 Ratio (1.60-3.17); Alkaline Phosphatase 77 U/L (41-126); BUN/Creat Ratio 15.71 Ratio (12.00-20.00); Calcium 9.7 mg/dL (8.7-10.3); Carbon Dioxide 25.4 mmol/L (21.6-31.8); Chloride 103 mmol/L (96-109); Globulin 2.9 g/dL (1.6-3.3); Glucose 180 mg/dL (70-110); LDL Cholesterol,Calculated 135.2 mg/dL (0.0-131.0); Sodium 139 mmol/L (135-145); Total Bilirubin 0.4 mg/dL (0.3-1.2); Total Protein 7.1 g/dL (6.2-8.2)
[2024-08-19 00:09] LABS: Follicle Stimulating Hormone 46.1 mIU/mL
== END | disposition home or self-care (01) ==
LOC: LABWHC1 14:06
PROVIDERS: ATTEND Family Medicine
DX: I10 Essential (primary) hypertension (principal); E11.9 Type 2 diabetes mellitus without complications; N95.1 Menopausal and female climacteric states
CPT/HCPCS: 36415; 80053; 80061; 82306; 83001; 83036; 85025

== ENCOUNTER → 2024-08-26 | Outpatient (CLI) | payer OTHER ==
--- NOTE | 2024-08-27 19:00 | MM ---
Reason for Exam: Screening (asymptomatic). Last mammogram was performed 1 year(s) and 1 month(s) ago. Patient History: Menarche at age 12. Patient has no children. Left ovary removed at age 45. Hysterectomy at age 45. Risk Values: Candi 5 year model risk: 1.0%. NCI Lifetime model risk: 8.9%. Prior Study Comparison: 04/13/2021 Bilateral MG 3D screening mammo w/cad, [facility]. 04/27/2021 Right MG 3D work up w/cad RT, [facility]. 08/07/2023 Bilateral MG 3D screening mammo w/cad, [facility]. Tissue Density: There are scattered areas of fibroglandular density. Findings: Analyzed By CAD. Unchanged asymmetric density lateral right cc view. There is no suspicious group of microcalcifications or new suspicious mass in either breast. Overall Assessment: Benign, BI-RAD 2 Management: Screening Mammogram of both breasts in 1 year. . Patient should continue monthly self-breast exams. A clinical breast exam by your physician is recommended on an annual basis. This exam should not preclude additional follow-up of suspicious palpable abnormalities. Note on Candi scores and lifetime risk: 1. A Candi score greater than 3% is considered moderate risk. If this is the case, consider specialist referral to assess eligibility for a risk reducing agent. 2. If overall lifetime risk for the development of breast cancer is 20% or higher, the patient may qualify for future screening with alternating mammogram and breast MRI. [facility], , 08/27/2024 6:58 PM. Electronically signed and approved by: Pao Pratt M.D. Radiologist
== END | disposition home or self-care (01) ==
LOC: RADMAMWWP 09:54
PROVIDERS: ATTEND Family Medicine
CPT/HCPCS: 77063; 77067